=== PATIENT | male | born 1960 | race Caucasian/White ===

== ENCOUNTER 2019-03-16 19:26 | Emergency (ER) | payer BC ==
[~2019-03-16 19:26] MED LIST: Etomidate 2 MG/ML 20 ML SDV IVPUSH ONE; Rocuronium 100 MG/10 ML MDV ONE; Succinylcholine 200 MG/10 ML MDV ONE
--- NOTE | 2019-03-16 19:39 | EDM.PDOC ---
ED HPI GENERAL MEDICAL PROBLEM - General Chief Complaint: Respiratory Problem Stated Complaint: UNKNOWN Time Seen by Provider: 03/16/19 19:29 - History of Present Illness INITIAL COMMENTS - FREE TEXT/NARRATIVE: HISTORY AND PHYSICAL: History of present illness: Patient is a 58-year-old white male who presents severe respiratory distress on arrival is speaking in several word sentences is noted be cyanotic and pale who states he's had a cough and progressive shortness of breath over last several days he denies chest pain nausea vomiting or other concern he is a smoker. Review of systems: As per history of present illness and below otherwise all systems reviewed and negative. Past medical history: As per history of present illness and as reviewed below otherwise noncontributory. Surgical history: As per history of present illness and as reviewed below otherwise noncontributory. Social history: No reported history of drug or alcohol abuse. Family history: As per history of present illness and as reviewed below otherwise noncontributory. Physical exam: HEENT: Atraumatic, normocephalic, pupils reactive, pallor and acrocyanosis noted , mucous membranes moist, throat clear, neck supple, nontender, trachea midline. Lungs: Coarse bilaterally diminished, breath sounds equal bilaterally, chest nontender. Heart: S1S2, regular, negative for clicks, rubs, or JVD. Abdomen: Soft, protuberant nontender. Negative for masses or hepatosplenomegaly. Negative for costovertebral tenderness. Pelvis: Stable nontender. Genitourinary: Deferred. Rectal: Deferred. Extremities: Atraumatic, negative for cords or calf pain. Neurovascular unremarkable. Neuro: Awake, alert, oriented. Follows commands moves all extremities limited but grossly nonfocal exam Diagnostics: CBC CMP troponin PT/INR chest x-ray EKG lactic acid blood culture 2 BNP Therapeutics: Patient was intubated with an 8-0 ET tube via rapid sequence intubation without complication Zosyn 3.375 IV Levaquin 750 IV central line was placed on myself in the right femoral vein with a sepsis this was a 8-5 [place] central line Impression: #1 acute respiratory failure Definitive disposition and diagnosis as appropriate pending reevaluation and review of above. - Related Data Allergies Allergy/AdvReac Type Severity Reaction Status Date / Time No Known Allergies Allergy Verified 03/16/19 19:28 Home Meds: Home Meds . [Unable to Verify Home Med List] 03/16/19 [History] ED ROS GENERAL - Review of Systems Review Of Systems: ROS reveals no pertinent complaints other than HPI. ED EXAM, GENERAL - Physical Exam Exam: See Below (Dictation) Course - Vital Signs Last Recorded V/S: Last Vital Signs Temp 36.1 C 03/16/19 19:30 Pulse 120 H 03/16/19 19:30 Resp 32 H 03/16/19 19:30 BP 151/73 H 03/16/19 19:30 Pulse Ox 49 L 03/16/19 19:30 - Orders/Labs/Meds Orders: Active Orders 24 hr Category Date Time Status Cardiac Monitoring [RC] . DIRECTED Care 03/16/19 19:35 Active Chest 2V [CR] Stat Exams 03/16/19 19:35 Ordered B-TYPE NATRIURETIC PEPTIDE,BNP [CHEM] Stat Lab 03/16/19 19:30 Received BLOOD GAS ARTERIAL [BG] Stat Lab 03/16/19 19:35 Ordered CBC WITH AUTO DIFF [HEME] Stat Lab 03/16/19 19:30 Received COMPREHENSIVE METABOLIC PN,CMP [CHEM] Stat Lab 03/16/19 19:30 Received CULTURE BLOOD [BC] Stat Lab 03/16/19 19:30 Received CULTURE BLOOD [BC] Stat Lab 03/16/19 19:36 Ordered INR,PT,PROTHROMBIN TIME [COAG] Stat Lab 03/16/19 19:30 Received TROPONIN I [CHEM] Stat Lab 03/16/19 19:30 Received UA W/O MICROSCOPIC [URIN] Stat Lab 03/16/19 19:35 Ordered Levofloxacin/Dextrose 5%-Water [Levaquin in D5W 750 MG/ Med 03/16/19 19:44 Ordered 150 ML] 750 mg Premix Bag 1 bag IV ONETIME Piperacillin/Tazobactam [Piperacil-Tazobact] 3.375 gm Med 03/16/19 19:44 Ordered Sodium Chloride 0.9% [Normal Saline] 50 ml IV ONETIME Blood Culture x2 Reflex Set [OM.PC] Stat Oth 03/16/19 19:36 Ordered Meds: Medications Discontinued Medications Generic Name Dose Route Start Last Admin Trade Name Freq PRN Reason Stop Dose Admin Propofol Confirm 03/16/19 19:30 Diprivan 100 Ml Administered 03/16/19 19:31 Dose 100 mls @ as directed .ROUTE .STK-MED ONE Departure - Departure Time of Disposition: 19:46 Disposition: DC/Tfer to Acute Hospital 02 Condition: Critical Clinical Impression: Acute respiratory failure - Discharge Information Forms: ED Department Discharge - My Orders Last 24 Hours: My Active Orders 03/16/19 19:30 B-TYPE NATRIURETIC PEPTIDE,BNP [CHEM] Stat CBC WITH AUTO DIFF [HEME] Stat COMPREHENSIVE METABOLIC PN,CMP [CHEM] Stat CULTURE BLOOD [BC] Stat INR,PT,PROTHROMBIN TIME [COAG] Stat TROPONIN I [CHEM] Stat 03/16/19 19:35 Cardiac Monitoring [RC] . DIRECTED Chest 2V [CR] Stat BLOOD GAS ARTERIAL [BG] Stat UA W/O MICROSCOPIC [URIN] Stat 03/16/19 19:36 CULTURE BLOOD [BC] Stat Blood Culture x2 Reflex Set [OM.PC] Stat 03/16/19 19:44 Levofloxacin/Dextrose 5%-Water [Levaquin in D5W 750 MG/150 ML] 750 mg Premix Bag 1 bag IV ONETIME Piperacillin/Tazobactam [Piperacil-Tazobact] 3.375 gm Sodium Chloride 0.9% [ Normal Saline] 50 ml IV ONETIME - Assessment/Plan Last 24 Hours: My Active Orders 03/16/19 19:30 B-TYPE NATRIURETIC PEPTIDE,BNP [CHEM] Stat CBC WITH AUTO DIFF [HEME] Stat COMPREHENSIVE METABOLIC PN,CMP [CHEM] Stat CULTURE BLOOD [BC] Stat INR,PT,PROTHROMBIN TIME [COAG] Stat TROPONIN I [CHEM] Stat 03/16/19 19:35 Cardiac Monitoring [RC] . DIRECTED Chest 2V [CR] Stat BLOOD GAS ARTERIAL [BG] Stat UA W/O MICROSCOPIC [URIN] Stat 03/16/19 19:36 CULTURE BLOOD [BC] Stat Blood Culture x2 Reflex Set [OM.PC] Stat 03/16/19 19:44 Levofloxacin/Dextrose 5%-Water [Levaquin in D5W 750 MG/150 ML] 750 mg Premix Bag 1 bag IV ONETIME Piperacillin/Tazobactam [Piperacil-Tazobact] 3.375 gm Sodium Chloride 0.9% [ Normal Saline] 50 ml IV ONETIME
[2019-03-16] MEDS ORDERED: Levofloxacin/Dextrose 5%-Water 750 MG in Premix Bag 1 BAG IV ONE (19:44)
[2019-03-16] MEDS ORDERED: Piperacillin/Tazobactam 3.375 GM in Sodium Chloride 0.9% 50 ML IV ONE (19:44)
[2019-03-16 20:09] LABS: CHLORIDE,CL 101 mmol/L (98-107); SODIUM,NA 137 mmol/L (136-148)
--- NOTE | 2019-03-16 20:10 | CR ---
HISTORY: Respiratory distress. Intubation. FINDINGS: Single AP view of the chest is provided. Endotracheal tube is seen in the mid trachea with the tip approximately 4.5 cm above the danielle. Patchy bilateral airspace opacity is noted suggest pneumonia. No findings for pneumothorax. Cardiac silhouette size is within normal limits. Dictated by John Walter MD @ Mar 16 2019 8:09PM Signed by Dr. John Walter @ Mar 16 2019 8:09PM
[2019-03-16] MEDS ORDERED: Etomidate 2 MG/ML 20 ML SDV IVPUSH ONE (20:33)
[2019-03-16] MEDS ORDERED: Rocuronium 50 MG/5 ML Vial IVPUSH ONE (20:33)
[2019-03-16] MEDS ORDERED: Sodium Chloride 0.9% 1,000 ML IV ONE ×4 (20:34→20:35)
== END 2019-03-16 21:18 ==
LOC: MW.ED 19:26
DX: J96.00 Acute respiratory failure, unspecified whether with hypoxia or hypercapnia (principal)
CPT/HCPCS: 31500; 36600; 71045; 80053; 81003; 82803; 83605; 83880; 84484; 85025; 85610; 87040; 93005; 94002; 96360; 96361; 96365; 99291; 99292; A4217; J0330; J1956; J2543; J2704; J3490; J7040; J7050

== ENCOUNTER 2023-03-18 21:13 | Inpatient (IN) | payer MEDICARE, MEDICAID ==
[2023-03-18] MEDS ORDERED: Sodium Chloride 0.9% 10 ML Syringe FLUSH PRN (21:40)
[2023-03-18] MEDS ORDERED: Sodium Chloride 0.9% 2.5 ML Syringe FLUSH PRN (21:40)
[2023-03-18] MEDS ORDERED: Albuterol/Ipratropium 3.0-0.5 MG/3 ML Neb Soln NEB ONE (21:47)
[2023-03-18] MEDS ORDERED: Magnesium Sulfate/Water 2 GM in Premix Bag 1 BAG IV ONE ×2 (21:47→22:00)
[2023-03-18] MEDS ORDERED: methylPREDNISolone Sodium Succinate 125 MG/2 ML SDV IVPUSH ONE (21:49)
[2023-03-18 21:51] LABS: BASE EXCESS VENOUS 6.4 (-2.0-3.0); BICARBONATE,VENOUS 33 mEq/L (23-28); PCO2 VENOUS 52 mmHG (41-51); PH,VENOUS 7.41 (7.31-7.41)
[2023-03-18 21:53] LABS: PO2 VENOUS < 30 mmHG
[2023-03-18 21:55] LABS: BASOPHILS ABSOLUTE AUTO 0.2 K/uL (0.0-0.1); BASOPHILS PERCENT AUTO 0.6 % (0.0-1.5); EOSINOPHILS ABSOLUTE AUTO 0.3 K/uL (0.0-0.7); EOSINOPHILS PERCENT AUTO 1.2 % (0.0-7.0); HEMATOCRIT 61.8 % (38.0-50.0); HEMOGLOBIN 20.1 g/dL (13.0-17.0); LYMPHOCYTES ABSOLUTE AUTO 1.3 K/uL (0.6-2.4); LYMPHOCYTES PERCENT AUTO 5.1 % (16.0-40.0); MEAN CORPUSCULAR HEMOGLOBIN 26.9 pg (27.0-32.0); MEAN CORPUSCULAR HGB CONC 32.5 g/dL (31.0-37.0); MEAN CORPUSCULAR VOLUME 82.7 fL (80.0-98.0); MONOCYTES ABSOLUTE AUTO 1.5 K/uL (0.0-0.8); NEUTROPHILS ABSOLUTE AUTO 21.7 K/uL (1.4-5.7); NEUTROPHILS PERCENT AUTO 87.1 % (48.0-80.0); NRBC ABSOLUTE 0 K/uL; PLATELET COUNT,PLT 550 K/uL (150-400); RED BLOOD CELL COUNT 7.47 M/uL (4.50-5.90); WHITE BLOOD CELL COUNT,WBC 24.97 K/uL (4.0-11.0)
[2023-03-18 22:06] LABS: INR 1.85 (0.86-1.11)
[2023-03-18] MEDS ORDERED: Sodium Chloride 0.9% 1,000 ML IV ONE (22:24)
[2023-03-18 22:28] LABS: A/G RATIO 0.7 (0.9-1.6); ALBUMIN 3.4 g/dL (3.4-5.0); BILIRUBIN TOTAL 1.8 mg/dL (0.2-1.0); CALCIUM 9.2 mg/dL (8.5-10.1); CARBON DIOXIDE,CO2 31.7 mmol/L (21.0-32.0); EST CRCL DRUG DOSING (CG) 74.1 mL/min; POTASSIUM,K 3.9 mmol/L (3.5-5.1); PROTEIN TOTAL,TP 8.4 g/dL (6.4-8.2)
[2023-03-18] MEDS ORDERED: Piperacillin/Tazobactam 4.5 GM in Sodium Chloride 0.9% 100 ML IV ONE (22:32)
[2023-03-18] MEDS ORDERED: VANCOmycin 2 GM/400 ML 400 ML IV ONE (22:45)
[2023-03-19 01:06] LABS: BASE EXCESS VENOUS 2.8 (-2.0-3.0); PH,VENOUS 7.4 (7.31-7.41)
[2023-03-19] MEDS ORDERED: Albuterol 0.083% 2.5 MG/3 ML Neb Soln NEB PRN (02:24)
[2023-03-19] MEDS ORDERED: Azithromycin 500 MG in Sodium Chloride 0.9% 250 ML IV SCH (02:30)
[2023-03-19] MEDS ORDERED: cefTRIAXone 1 GM in Sodium Chloride 0.9% 50 ML IV SCH (02:30)
[2023-03-19] MEDS ORDERED: Sodium Chloride 0.9% 1,000 ML IV SCH (02:30)
[2023-03-19 05:47] LABS: BASOPHILS ABSOLUTE AUTO 0.1 K/uL (0.0-0.1); BASOPHILS PERCENT AUTO 0.5 % (0.0-1.5); HEMATOCRIT 57.1 % (38.0-50.0); HEMOGLOBIN 18.5 g/dL (13.0-17.0); LYMPHOCYTES ABSOLUTE AUTO 0.4 K/uL (0.6-2.4); LYMPHOCYTES PERCENT AUTO 1.7 % (16.0-40.0); MEAN CORPUSCULAR HEMOGLOBIN 26.8 pg (27.0-32.0); MEAN CORPUSCULAR HGB CONC 32.4 g/dL (31.0-37.0); MEAN CORPUSCULAR VOLUME 82.6 fL (80.0-98.0); MONOCYTES ABSOLUTE AUTO 0.3 K/uL (0.0-0.8); MONOCYTES PERCENT AUTO 1.1 % (0.0-15.0); NEUTROPHILS ABSOLUTE AUTO 23.5 K/uL (1.4-5.7); NEUTROPHILS PERCENT AUTO 96.7 % (48.0-80.0); NRBC ABSOLUTE 0 K/uL; NRBC PERCENT 0.1 /100WBC; PLATELET COUNT,PLT 485 K/uL (150-400); RED BLOOD CELL COUNT 6.91 M/uL (4.50-5.90); WHITE BLOOD CELL COUNT,WBC 24.25 K/uL (4.0-11.0)
[2023-03-19 06:05] LABS: CALCIUM 8.7 mg/dL (8.5-10.1); CARBON DIOXIDE,CO2 26.7 mmol/L (21.0-32.0); EST CRCL DRUG DOSING (CG) 74.1 mL/min; POTASSIUM,K 3.6 mmol/L (3.5-5.1)
[2023-03-19] MEDS: Albuterol/Ipratropium 3.0-0.5 MG/3 ML Neb Soln NEB SCH ×5 (06:16→22:09)
[2023-03-19 06:28] LABS: BASE EXCESS ARTERIAL 1.9 (-2.0-3.0); BICARBONATE,ARTERIAL 28 mEq/L (22-26); PCO2 ARTERIAL 47 mmHG (35-45); PO2 ARTERIAL 72 mmHG (80-105)
[2023-03-19] MEDS: predniSONE 20 MG Tab PO SCH (08:05)
[2023-03-19] MEDS ORDERED: Enoxaparin 40 MG/0.4 ML Syringe SUBCUT SCH (09:00)
[2023-03-19] MEDS ORDERED: Furosemide 40 MG/4 ML VIAL IVPUSH ONE (10:01)
[2023-03-19] MEDS ORDERED: Digoxin 125 MCG Tab PO SCH (10:15)
[2023-03-19] MEDS ORDERED: Metoprolol Succinate 50 MG Tab.ER PO SCH (10:15)
[2023-03-19] MEDS ORDERED: Apixaban 5 MG Tab PO SCH (10:15)
[2023-03-19] MEDS ORDERED: Albuterol 8 GM Inhaler INH PRN (10:18)
[2023-03-19] MEDS ORDERED: Diltiazem 120 MG Cap.CD PO SCH (10:30)
[2023-03-19] MEDS ORDERED: Doxycycline 100 MG Cap PO SCH (10:30)
[2023-03-19] MEDS: Doxycycline 100 MG Cap PO SCH ×2 (12:07→20:41)
[2023-03-19] MEDS: Diltiazem 120 MG Cap.CD PO SCH (12:14)
[2023-03-19] MEDS: Apixaban 5 MG Tab PO SCH ×2 (12:14→20:41)
[2023-03-19] MEDS: Digoxin 125 MCG Tab PO SCH (12:15)
[2023-03-19] MEDS: Metoprolol Succinate 50 MG Tab.ER PO SCH (12:15)
[2023-03-19] MEDS: Nicotine 14 MG/24 Hr Patch TRDERM SCH (15:46)
[2023-03-19] MEDS: Potassium Chloride 20 MEQ Tab.ER PO SCH (20:41)
[2023-03-19] MEDS: guaiFENesin 600 MG Tab.ER PO SCH (23:44)
[2023-03-20] MEDS: Albuterol/Ipratropium 3.0-0.5 MG/3 ML Neb Soln NEB SCH ×6 (01:46→21:34)
[2023-03-20] MEDS: Magnesium Oxide 400 MG Tab PO SCH (08:10)
[2023-03-20] MEDS: guaiFENesin 600 MG Tab.ER PO SCH ×2 (08:11→20:41)
[2023-03-20] MEDS: Diltiazem 120 MG Cap.CD PO SCH (08:12)
[2023-03-20] MEDS: Doxycycline 100 MG Cap PO SCH ×2 (08:12→20:41)
[2023-03-20] MEDS: buPROPion 150 MG Tab.ER PO SCH (08:13)
[2023-03-20] MEDS: Potassium Chloride 20 MEQ Tab.ER PO SCH ×2 (08:15→20:41)
[2023-03-20] MEDS: predniSONE 20 MG Tab PO SCH (08:15)
[2023-03-20] MEDS: Apixaban 5 MG Tab PO SCH ×2 (08:16→20:41)
[2023-03-20] MEDS: Furosemide 40 MG Tab PO SCH (08:16)
[2023-03-20] MEDS: Digoxin 125 MCG Tab PO SCH (08:17)
[2023-03-20] MEDS: Nicotine 14 MG/24 Hr Patch TRDERM SCH (08:17)
[2023-03-20] MEDS: Metoprolol Succinate 50 MG Tab.ER PO SCH (09:04)
[2023-03-20 10:43] LABS: BASOPHILS ABSOLUTE AUTO 0.1 K/uL (0.0-0.1); BASOPHILS PERCENT AUTO 0.3 % (0.0-1.5); HEMATOCRIT 58.8 % (38.0-50.0); HEMOGLOBIN 18.7 g/dL (13.0-17.0); LYMPHOCYTES ABSOLUTE AUTO 0.8 K/uL (0.6-2.4); LYMPHOCYTES PERCENT AUTO 3.3 % (16.0-40.0); MEAN CORPUSCULAR HEMOGLOBIN 26.4 pg (27.0-32.0); MEAN CORPUSCULAR HGB CONC 31.8 g/dL (31.0-37.0); MEAN CORPUSCULAR VOLUME 83.2 fL (80.0-98.0); MONOCYTES ABSOLUTE AUTO 0.7 K/uL (0.0-0.8); MONOCYTES PERCENT AUTO 2.7 % (0.0-15.0); NEUTROPHILS ABSOLUTE AUTO 23.3 K/uL (1.4-5.7); NEUTROPHILS PERCENT AUTO 93.7 % (48.0-80.0); NRBC ABSOLUTE 0 K/uL; PLATELET COUNT,PLT 503 K/uL (150-400); RED BLOOD CELL COUNT 7.07 M/uL (4.50-5.90); WHITE BLOOD CELL COUNT,WBC 24.87 K/uL (4.0-11.0)
[2023-03-20 11:21] LABS: CALCIUM 9.1 mg/dL (8.5-10.1); CARBON DIOXIDE,CO2 28.5 mmol/L (21.0-32.0); EST CRCL DRUG DOSING (CG) 74.1 mL/min; POTASSIUM,K 4.4 mmol/L (3.5-5.1)
[2023-03-20] MEDS: Benzonatate 100 MG Cap PO PRN (15:03)
[2023-03-21] MEDS: Albuterol/Ipratropium 3.0-0.5 MG/3 ML Neb Soln NEB SCH ×3 (04:04→10:49)
[2023-03-21] MEDS: Benzonatate 100 MG Cap PO PRN (07:53)
[2023-03-21] MEDS: predniSONE 20 MG Tab PO SCH (07:53)
[2023-03-21] MEDS: Apixaban 5 MG Tab PO SCH (08:03)
[2023-03-21] MEDS: Potassium Chloride 20 MEQ Tab.ER PO SCH (08:03)
[2023-03-21] MEDS: Metoprolol Succinate 50 MG Tab.ER PO SCH (08:04)
[2023-03-21] MEDS: Digoxin 125 MCG Tab PO SCH (08:05)
[2023-03-21] MEDS: guaiFENesin 600 MG Tab.ER PO SCH (08:05)
[2023-03-21] MEDS: Furosemide 40 MG Tab PO SCH (08:06)
[2023-03-21] MEDS: buPROPion 150 MG Tab.ER PO SCH (08:06)
[2023-03-21] MEDS: Doxycycline 100 MG Cap PO SCH (08:06)
[2023-03-21] MEDS: Diltiazem 120 MG Cap.CD PO SCH (08:07)
[2023-03-21] MEDS: Nicotine 14 MG/24 Hr Patch TRDERM SCH (08:07)
[2023-03-21] MEDS: Magnesium Oxide 400 MG Tab PO SCH (08:09)
== END 2023-03-21 13:00 | disposition home or self-care (01) | DRG 189 ==
LOC: MW.ED 21:13 → MW.ICU 03-19 00:45 → MW.MS 03-19 19:08
PROVIDERS: ADMIT Hospitalist; ATTEND Hospitalist
PROC: 5A09357 Assistance with Respiratory Ventilation, Less than 24 Consecutive Hours, Continuous Positive Airway Pressure (ICD-10-PCS; principal; 2023-03-19)
DX: J96.21 Acute and chronic respiratory failure with hypoxia (principal); I48.20 Chronic atrial fibrillation, unspecified; J18.9 Pneumonia, unspecified organism; J44.0 Chronic obstructive pulmonary disease with (acute) lower respiratory infection; I50.22 Chronic systolic (congestive) heart failure; R65.10 Systemic inflammatory response syndrome (SIRS) of non-infectious origin without acute organ dysfunction; A41.9 Sepsis, unspecified organism; J44.1 Chronic obstructive pulmonary disease with (acute) exacerbation; E78.00 Pure hypercholesterolemia, unspecified; M19.90 Unspecified osteoarthritis, unspecified site; D75.1 Secondary polycythemia; E66.9 Obesity, unspecified; G47.33 Obstructive sleep apnea (adult) (pediatric); R09.02 Hypoxemia; Z88.7 Allergy status to serum and vaccine; Z88.8 Allergy status to other drugs, medicaments and biological substances; Z90.49 Acquired absence of other specified parts of digestive tract; F17.210 Nicotine dependence, cigarettes, uncomplicated; Z68.36 Body mass index [BMI] 36.0-36.9, adult; Z91.198 Patient's noncompliance with other medical treatment and regimen for other reason; Z98.890 Other specified postprocedural states; I11.0 Hypertensive heart disease with heart failure; Z91.041 Radiographic dye allergy status; Z91.148 Patient's other noncompliance with medication regimen for other reason; I50.9 Heart failure, unspecified; Z99.81 Dependence on supplemental oxygen; Z79.01 Long term (current) use of anticoagulants; Z79.899 Other long term (current) drug therapy
CPT/HCPCS: 36415; 71045; 80053; 82803; 83605; 85025; 85610; 87040 ×2; 94660; J2543; J2930; J3370; J3475; J3490 ×2; J7030; 36600; 80048; 94640; 99223; 99232; 99239; 99284; A9270-GY; J0456; J0696; J1650; J1940; J7050; J7620-GY

== ENCOUNTER 2023-03-23 17:46 | Observation (INO) | payer MEDICARE, MEDICAID ==
[2023-03-23] MEDS ORDERED: Sodium Chloride 0.9% 10 ML Syringe FLUSH PRN (17:54)
[2023-03-23] MEDS ORDERED: Sodium Chloride 0.9% 2.5 ML Syringe FLUSH PRN (17:54)
[2023-03-23 18:06] LABS: BASE EXCESS VENOUS 10.8 (-2.0-3.0); PH,VENOUS 7.42 (7.31-7.41)
[2023-03-23 18:10] LABS: HEMATOCRIT 63.6 % (38.0-50.0); MEAN CORPUSCULAR HGB CONC 31.4 g/dL (31.0-37.0); MEAN CORPUSCULAR VOLUME 82.7 fL (80.0-98.0); NRBC ABSOLUTE 0 K/uL; PLATELET COUNT,PLT 438 K/uL (150-400); RED BLOOD CELL COUNT 7.69 M/uL (4.50-5.90); WHITE BLOOD CELL COUNT,WBC 18.65 K/uL (4.0-11.0)
[2023-03-23] MEDS ORDERED: Ondansetron 4 MG/2 ML SDV IVPUSH STA (18:35)
[2023-03-23 18:36] LABS: A/G RATIO 0.8 (0.9-1.6); ALBUMIN 3.1 g/dL (3.4-5.0); BILIRUBIN TOTAL 1.1 mg/dL (0.2-1.0); CALCIUM 8.9 mg/dL (8.5-10.1); CARBON DIOXIDE,CO2 35.8 mmol/L (21.0-32.0); CREATININE 0.9 mg/dL (0.8-1.3); EST CRCL DRUG DOSING (CG) 76.8 mL/min; PROTEIN TOTAL,TP 6.8 g/dL (6.4-8.2)
[2023-03-23 18:38] LABS: LIPASE 28 U/L (73-393); MAGNESIUM 2.2 mg/dL (1.8-2.4)
[2023-03-23 19:00] LABS: BAND ABSOLUTE MAN 0.2; BAND PERCENT MAN 1 %; BASOPHILS ABSOLUTE MAN 0.2 (0.0-0.1); BASOPHILS PERCENT MAN 1 % (0.0-1.5); EOSINOPHILS ABSOLUTE MAN 0.6 (0.0-0.7); EOSINOPHILS PERCENT MAN 3 % (0.0-7.0); LYMPHOCYTES % ATYPICAL MANUAL 6; LYMPHOCYTES ABSOLUTE MAN 1.9 (0.6-2.4); LYMPHOCYTES PERCENT MAN 10 % (16.0-40.0); MONOCYTES ABSOLUTE MAN 1.7 (0.0-0.8); MONOCYTES PERCENT MAN 9 % (0.0-15.0); SEG NEUTROPHILS ABSOLUTE MAN 13.1 (1.4-5.7); SEG NEUTROPHILS PERCENT MAN 70 % (48.0-80.0)
[2023-03-23 19:07] LABS: INR 1.26 (0.86-1.11)
[2023-03-23] MEDS ORDERED: Iopamidol 755 MG/ML 500 ML Multipack Bottle IVPUSH STA (19:14)
[2023-03-23 20:27] LABS: APPEARANCE,URINE CLEAR; BILIRUBIN,URINE NEGATIVE (NEGATIVE); COLOR,URINE YELLOW; GLUCOSE,URINE NEGATIVE (NEGATIVE); KETONES,URINE NEGATIVE (NEGATIVE); LEUKOCYTE ESTERASE,URINE NEGATIVE (NEGATIVE); NITRITE,URINE NEGATIVE (NEGATIVE); OCCULT BLOOD,URINE NEGATIVE (NEGATIVE); PH,URINE 5.5 (5.0-8.0); PROTEIN,URINE NEGATIVE (NEGATIVE)
[2023-03-23] MEDS ORDERED: Levofloxacin/Dextrose 5%-Water 750 MG in Premix Bag 1 BAG IV STA (21:14)
[2023-03-24] MEDS ORDERED: Ondansetron 4 MG/2 ML SDV IVPUSH PRN (00:04)
[2023-03-24] MEDS ORDERED: Albuterol 8 GM Inhaler INH PRN (00:15)
[2023-03-24] MEDS: Nicotine 14 MG/24 Hr Patch TRDERM SCH ×2 (00:32→11:53)
[2023-03-24 06:13] LABS: HEMATOCRIT 59.9 % (38.0-50.0); HEMOGLOBIN 18.9 g/dL (13.0-17.0); MEAN CORPUSCULAR HEMOGLOBIN 26.4 pg (27.0-32.0); MEAN CORPUSCULAR HGB CONC 31.6 g/dL (31.0-37.0); MEAN CORPUSCULAR VOLUME 83.5 fL (80.0-98.0); NRBC ABSOLUTE 0 K/uL; PLATELET COUNT,PLT 395 K/uL (150-400); RED BLOOD CELL COUNT 7.17 M/uL (4.50-5.90); WHITE BLOOD CELL COUNT,WBC 17.52 K/uL (4.0-11.0)
[2023-03-24 06:28] LABS: BAND ABSOLUTE MAN 0.7; BAND PERCENT MAN 4 %; EOSINOPHILS ABSOLUTE MAN 0.7 (0.0-0.7); EOSINOPHILS PERCENT MAN 4 % (0.0-7.0); LYMPHOCYTES ABSOLUTE MAN 2.5 (0.6-2.4); LYMPHOCYTES PERCENT MAN 14 % (16.0-40.0); MONOCYTES ABSOLUTE MAN 1.1 (0.0-0.8); MONOCYTES PERCENT MAN 6 % (0.0-15.0); SEG NEUTROPHILS ABSOLUTE MAN 12.6 (1.4-5.7); SEG NEUTROPHILS PERCENT MAN 72 % (48.0-80.0)
[2023-03-24 06:37] LABS: A/G RATIO 0.7 (0.9-1.6); ALBUMIN 2.6 g/dL (3.4-5.0); CALCIUM 8.7 mg/dL (8.5-10.1); CARBON DIOXIDE,CO2 35.9 mmol/L (21.0-32.0); CREATININE 0.8 mg/dL (0.8-1.3); EST CRCL DRUG DOSING (CG) 86.4 mL/min; POTASSIUM,K 3.6 mmol/L (3.5-5.1); PROTEIN TOTAL,TP 6.3 g/dL (6.4-8.2)
[2023-03-24] MEDS: Diltiazem 120 MG Cap.CD PO SCH ×2 (09:09→20:59)
[2023-03-24] MEDS: buPROPion 150 MG Tab.ER PO SCH (09:13)
[2023-03-24] MEDS: Digoxin 125 MCG Tab PO SCH (09:14)
[2023-03-24] MEDS: Apixaban 5 MG Tab PO SCH ×2 (09:14→20:59)
[2023-03-24] MEDS: Metoprolol Succinate 50 MG Tab.ER PO SCH (09:15)
[2023-03-24] MEDS: Levofloxacin/Dextrose 5%-Water 750 MG in Premix Bag 1 BAG IV SCH (21:00)
[2023-03-25 06:27] LABS: HEMATOCRIT 58.5 % (38.0-50.0); HEMOGLOBIN 18.2 g/dL (13.0-17.0); MEAN CORPUSCULAR HEMOGLOBIN 26.1 pg (27.0-32.0); MEAN CORPUSCULAR HGB CONC 31.1 g/dL (31.0-37.0); MEAN CORPUSCULAR VOLUME 83.8 fL (80.0-98.0); NRBC ABSOLUTE 0 K/uL; PLATELET COUNT,PLT 414 K/uL (150-400); RED BLOOD CELL COUNT 6.98 M/uL (4.50-5.90); WHITE BLOOD CELL COUNT,WBC 16.46 K/uL (4.0-11.0)
[2023-03-25 06:59] LABS: CALCIUM 8.8 mg/dL (8.5-10.1); CARBON DIOXIDE,CO2 32.8 mmol/L (21.0-32.0); CREATININE 0.9 mg/dL (0.8-1.3); EST CRCL DRUG DOSING (CG) 76.8 mL/min; POTASSIUM,K 3.7 mmol/L (3.5-5.1)
[2023-03-25 07:03] LABS: BAND ABSOLUTE MAN 0.3; BAND PERCENT MAN 2 %; EOSINOPHILS ABSOLUTE MAN 0.2 (0.0-0.7); EOSINOPHILS PERCENT MAN 1 % (0.0-7.0); LYMPHOCYTES ABSOLUTE MAN 2.6 (0.6-2.4); LYMPHOCYTES PERCENT MAN 16 % (16.0-40.0); MONOCYTES ABSOLUTE MAN 0.2 (0.0-0.8); MONOCYTES PERCENT MAN 1 % (0.0-15.0); SEG NEUTROPHILS ABSOLUTE MAN 13.2 (1.4-5.7); SEG NEUTROPHILS PERCENT MAN 80 % (48.0-80.0)
[2023-03-25] MEDS: Diltiazem 120 MG Cap.CD PO SCH ×2 (08:50→21:37)
[2023-03-25] MEDS: Digoxin 125 MCG Tab PO SCH (08:50)
[2023-03-25] MEDS: Apixaban 5 MG Tab PO SCH ×2 (08:50→21:37)
[2023-03-25] MEDS: buPROPion 150 MG Tab.ER PO SCH (08:50)
[2023-03-25] MEDS: Metoprolol Succinate 50 MG Tab.ER PO SCH (08:51)
[2023-03-25] MEDS: Nicotine 14 MG/24 Hr Patch TRDERM SCH (08:55)
[2023-03-25] MEDS ORDERED: Acetaminophen 325 MG Tab PO PRN (21:22)
[2023-03-25] MEDS ORDERED: Acetaminophen 325 MG Tab ONE (21:35)
[2023-03-25] MEDS: Levofloxacin/Dextrose 5%-Water 750 MG in Premix Bag 1 BAG IV SCH (21:38)
[2023-03-26 07:16] LABS: BASOPHILS ABSOLUTE AUTO 0.2 K/uL (0.0-0.1); BASOPHILS PERCENT AUTO 1.6 % (0.0-1.5); EOSINOPHILS ABSOLUTE AUTO 0.8 K/uL (0.0-0.7); EOSINOPHILS PERCENT AUTO 5.1 % (0.0-7.0); HEMATOCRIT 57.8 % (38.0-50.0); HEMOGLOBIN 18.2 g/dL (13.0-17.0); LYMPHOCYTES ABSOLUTE AUTO 1.8 K/uL (0.6-2.4); LYMPHOCYTES PERCENT AUTO 11.9 % (16.0-40.0); MEAN CORPUSCULAR HEMOGLOBIN 26.4 pg (27.0-32.0); MEAN CORPUSCULAR HGB CONC 31.5 g/dL (31.0-37.0); MEAN CORPUSCULAR VOLUME 83.8 fL (80.0-98.0); MONOCYTES ABSOLUTE AUTO 1.2 K/uL (0.0-0.8); MONOCYTES PERCENT AUTO 7.9 % (0.0-15.0); NEUTROPHILS PERCENT AUTO 73.5 % (48.0-80.0); NRBC ABSOLUTE 0 K/uL; PLATELET COUNT,PLT 370 K/uL (150-400); WHITE BLOOD CELL COUNT,WBC 14.96 K/uL (4.0-11.0)
[2023-03-26 07:42] LABS: CALCIUM 8.6 mg/dL (8.5-10.1); CARBON DIOXIDE,CO2 31.8 mmol/L (21.0-32.0); CREATININE 0.9 mg/dL (0.8-1.3); EST CRCL DRUG DOSING (CG) 76.8 mL/min; POTASSIUM,K 4.2 mmol/L (3.5-5.1)
[2023-03-26] MEDS: Metoprolol Succinate 50 MG Tab.ER PO SCH (09:02)
[2023-03-26] MEDS: Digoxin 125 MCG Tab PO SCH (09:03)
[2023-03-26] MEDS: Apixaban 5 MG Tab PO SCH (09:04)
[2023-03-26] MEDS: buPROPion 150 MG Tab.ER PO SCH (09:04)
[2023-03-26] MEDS: Diltiazem 120 MG Cap.CD PO SCH (09:05)
[2023-03-26] MEDS: Nicotine 14 MG/24 Hr Patch TRDERM SCH (09:05)
== END 2023-03-26 12:20 | disposition home or self-care (01) ==
LOC: MW.ED 17:46 → MW.MS 21:15
PROVIDERS: ADMIT Internal Medicine; ATTEND Internal Medicine
DX: K52.9 Noninfective gastroenteritis and colitis, unspecified (principal); I50.9 Heart failure, unspecified; I48.20 Chronic atrial fibrillation, unspecified; J96.00 Acute respiratory failure, unspecified whether with hypoxia or hypercapnia; J44.1 Chronic obstructive pulmonary disease with (acute) exacerbation; J18.9 Pneumonia, unspecified organism; E78.00 Pure hypercholesterolemia, unspecified; I10 Essential (primary) hypertension; G47.00 Insomnia, unspecified; E66.9 Obesity, unspecified; Z90.49 Acquired absence of other specified parts of digestive tract; F17.210 Nicotine dependence, cigarettes, uncomplicated; Z91.041 Radiographic dye allergy status; Z88.7 Allergy status to serum and vaccine
CPT/HCPCS: 36415; 71260; 74177; 80048; 80053; 80162; 81003; 82803; 83605; 83690; 83735; 83880; 84484; 85025; 85610; 87040; 87899; 93005; 96365; 96375; 99285; A9270; J1956; J2405; J3490; Q9967; U0002; 93010; 96366; 96376; G0378

== ENCOUNTER 2023-04-05 17:40 | Emergency (ER) | payer MEDICARE, MEDICAID ==
[2023-04-05] MEDS ORDERED: Sodium Chloride 0.9% 10 ML Syringe FLUSH PRN (17:58)
[2023-04-05] MEDS ORDERED: Sodium Chloride 0.9% 2.5 ML Syringe FLUSH PRN (17:58)
[2023-04-05 18:22] LABS: BASOPHILS ABSOLUTE AUTO 0.4 K/uL (0.0-0.1); BASOPHILS PERCENT AUTO 2.4 % (0.0-1.5); EOSINOPHILS ABSOLUTE AUTO 0.6 K/uL (0.0-0.7); HEMATOCRIT 59.4 % (38.0-50.0); LYMPHOCYTES ABSOLUTE AUTO 1.9 K/uL (0.6-2.4); LYMPHOCYTES PERCENT AUTO 12.4 % (16.0-40.0); MEAN CORPUSCULAR HEMOGLOBIN 26.6 pg (27.0-32.0); MEAN CORPUSCULAR VOLUME 83.1 fL (80.0-98.0); MONOCYTES PERCENT AUTO 6.3 % (0.0-15.0); NEUTROPHILS ABSOLUTE AUTO 11.7 K/uL (1.4-5.7); NEUTROPHILS PERCENT AUTO 74.9 % (48.0-80.0); NRBC ABSOLUTE 0 K/uL; PLATELET COUNT,PLT 651 K/uL (150-400); RED BLOOD CELL COUNT 7.15 M/uL (4.50-5.90); WHITE BLOOD CELL COUNT,WBC 15.62 K/uL (4.0-11.0)
[2023-04-05 18:42] LABS: A/G RATIO 0.9 (0.9-1.6); CALCIUM 8.3 mg/dL (8.5-10.1); CARBON DIOXIDE,CO2 30.3 mmol/L (21.0-32.0); CREATININE 0.9 mg/dL (0.8-1.3); EST CRCL DRUG DOSING (CG) 76.8 mL/min; POTASSIUM,K 3.9 mmol/L (3.5-5.1); PROTEIN TOTAL,TP 6.4 g/dL (6.4-8.2)
[2023-04-05 18:45] LABS: DIGOXIN 0.3 ng/mL (0.9-2.0)
[2023-04-05] MEDS ORDERED: Meclizine 25 MG Tab PO STA (19:22)
== END 2023-04-05 20:53 | disposition home or self-care (01) ==
LOC: MW.ED 17:40
DX: R42 Dizziness and giddiness (principal); Z51.81 Encounter for therapeutic drug level monitoring; I10 Essential (primary) hypertension; J44.9 Chronic obstructive pulmonary disease, unspecified; E66.9 Obesity, unspecified; Z79.899 Other long term (current) drug therapy; Z20.822 Contact with and (suspected) exposure to COVID-19; Z79.01 Long term (current) use of anticoagulants; Z88.7 Allergy status to serum and vaccine; Z91.041 Radiographic dye allergy status; Z68.41 Body mass index [BMI] 40.0-44.9, adult
CPT/HCPCS: 36415; 80053; 80162; 83690; 83735; 84484; 85025; 93005; 99284; A9270; J3490; U0002; 93010; 99283

== ENCOUNTER 2023-04-30 16:02 | Emergency (ER) | payer MEDICARE, MEDICAID ==
[2023-04-30] MEDS ORDERED: Sodium Chloride 0.9% 1,000 ML IV ONE (16:13)
[2023-04-30] MEDS ORDERED: Meclizine 25 MG Tab PO ONE (16:13)
[2023-04-30 17:05] LABS: HEMATOCRIT 63.3 % (38.0-50.0); HEMOGLOBIN 20.2 g/dL (13.0-17.0); MEAN CORPUSCULAR HEMOGLOBIN 27.6 pg (27.0-32.0); MEAN CORPUSCULAR HGB CONC 31.9 g/dL (31.0-37.0); MEAN CORPUSCULAR VOLUME 86.5 fL (80.0-98.0); NRBC ABSOLUTE 0 K/uL; PLATELET COUNT,PLT 561 K/uL (150-400); RED BLOOD CELL COUNT 7.32 M/uL (4.50-5.90); WHITE BLOOD CELL COUNT,WBC 13.79 K/uL (4.0-11.0)
[2023-04-30 17:27] LABS: A/G RATIO 0.8 (0.9-1.6); ALBUMIN 3.5 g/dL (3.4-5.0); BILIRUBIN TOTAL 1.1 mg/dL (0.2-1.0); CALCIUM 8.6 mg/dL (8.5-10.1); CARBON DIOXIDE,CO2 33.4 mmol/L (21.0-32.0); EST CRCL DRUG DOSING (CG) 69.12 mL/min; POTASSIUM,K 3.6 mmol/L (3.5-5.1); PROTEIN TOTAL,TP 7.7 g/dL (6.4-8.2)
[2023-04-30 17:34] LABS: BAND ABSOLUTE MAN 0.3; BAND PERCENT MAN 2 %; BASOPHILS ABSOLUTE MAN 0.4 (0.0-0.1); BASOPHILS PERCENT MAN 3 % (0.0-1.5); EOSINOPHILS ABSOLUTE MAN 0.1 (0.0-0.7); EOSINOPHILS PERCENT MAN 1 % (0.0-7.0); LYMPHOCYTES ABSOLUTE MAN 2.3 (0.6-2.4); LYMPHOCYTES PERCENT MAN 17 % (16.0-40.0); MONOCYTES ABSOLUTE MAN 0.3 (0.0-0.8); MONOCYTES PERCENT MAN 2 % (0.0-15.0); MYELOCYTE ABSOLUTE MAN 0.1; MYELOCYTE PERCENT MAN 1 %; PLATELET COUNT ESTIMATE INCREASED; SEG NEUTROPHILS ABSOLUTE MAN 10.2 (1.4-5.7); SEG NEUTROPHILS PERCENT MAN 74 % (48.0-80.0)
[2023-04-30 18:29] LABS: APPEARANCE,URINE CLEAR; BILIRUBIN,URINE NEGATIVE (NEGATIVE); COLOR,URINE YELLOW; GLUCOSE,URINE NEGATIVE (NEGATIVE); KETONES,URINE NEGATIVE (NEGATIVE); LEUKOCYTE ESTERASE,URINE NEGATIVE (NEGATIVE); NITRITE,URINE NEGATIVE (NEGATIVE); OCCULT BLOOD,URINE NEGATIVE (NEGATIVE); PROTEIN,URINE NEGATIVE (NEGATIVE)
== END 2023-04-30 19:28 | disposition home or self-care (01) ==
LOC: MW.ED 16:02
DX: R42 Dizziness and giddiness (principal); I10 Essential (primary) hypertension; J44.9 Chronic obstructive pulmonary disease, unspecified; Z87.891 Personal history of nicotine dependence; Z20.822 Contact with and (suspected) exposure to COVID-19; Z79.899 Other long term (current) drug therapy; Z91.041 Radiographic dye allergy status; Z88.7 Allergy status to serum and vaccine
CPT/HCPCS: 36415; 71045; 80053; 81003; 85025; 96360; 99284; A9270; J7030; U0002; 93010; 99283

== ENCOUNTER 2023-08-17 14:29 | Emergency (ER) | payer MEDICAID, MEDICARE ==
[2023-08-17 15:36] LABS: CORONAVIRUS COVID-19 NAA NEGATIVE (NEGATIVE); INFLUENZA A NAA NEGATIVE (NEGATIVE); INFLUENZA B NAA NEGATIVE (NEGATIVE); RESPIRATORY SYNCYTIAL VIR NAA NEGATIVE (NEGATIVE)
== END 2023-08-17 16:13 | disposition home or self-care (01) ==
LOC: MW.ED 14:29
DX: R06.00 Dyspnea, unspecified (principal); I10 Essential (primary) hypertension; J44.9 Chronic obstructive pulmonary disease, unspecified; Z20.822 Contact with and (suspected) exposure to COVID-19; Z79.899 Other long term (current) drug therapy; Z88.8 Allergy status to other drugs, medicaments and biological substances; Z88.7 Allergy status to serum and vaccine
CPT/HCPCS: 0241U; 71046; 99285

== ENCOUNTER 2023-09-01 08:34 | Observation (INO) | payer MEDICARE ==
[2023-09-01] MEDS ORDERED: Sodium Chloride 0.9% 500 ML IV ONE (08:50)
[2023-09-01 09:25] LABS: HEMATOCRIT 64.2 % (42.0-52.0); MEAN CORPUSCULAR HEMOGLOBIN 26.4 pg (28.0-32.0); MEAN CORPUSCULAR HGB CONC 31.2 g/dL (32.0-36.0); MEAN CORPUSCULAR VOLUME 84.6 fL (83.0-99.0); MEAN PLATELET VOLUME 9.4 fL (9.4-12.4); PLATELET COUNT,PLT 482 K/uL (150-400); RED BLOOD CELL COUNT 7.59 M/uL (4.52-5.90); WHITE BLOOD CELL COUNT,WBC 13.51 K/uL (3.9-11.3)
[2023-09-01 09:33] LABS: INR 1.37 (0.86-1.11)
[2023-09-01] MEDS ORDERED: Ondansetron 4 MG/2 ML SDV IVPUSH ONE (10:00)
[2023-09-01 10:10] LABS: CORONAVIRUS COVID-19 NAA NEGATIVE (NEGATIVE); INFLUENZA A NAA NEGATIVE (NEGATIVE); INFLUENZA B NAA NEGATIVE (NEGATIVE); RESPIRATORY SYNCYTIAL VIR NAA NEGATIVE (NEGATIVE)
[2023-09-01 10:19] LABS: A/G RATIO 0.9 (0.9-1.6); ALBUMIN 3.4 g/dL (3.4-5.0); BILIRUBIN TOTAL 1.3 mg/dL (0.2-1.0); CALCIUM 8.9 mg/dL (8.5-10.1); CREATININE 1.1 mg/dL (0.8-1.3); DIGOXIN 1.3 ng/mL (0.9-2.0); EST CRCL DRUG DOSING (CG) 62.83 mL/min; POTASSIUM,K 4.4 mmol/L (3.5-5.1); PROTEIN TOTAL,TP 7.1 g/dL (6.4-8.2)
[2023-09-01 10:21] LABS: BAND ABSOLUTE MAN 0.14; BAND PERCENT MAN 1 %; LYMPHOCYTES ABSOLUTE MAN 2.16 K/uL (1.00-4.80); LYMPHOCYTES PERCENT MAN 16 % (24-44); MONOCYTES ABSOLUTE MAN 0.27 K/uL (0.00-0.80); MONOCYTES PERCENT MAN 2 % (0-8); SEG NEUTROPHILS ABSOLUTE MAN 10.94 K/uL (1.80-7.70); SEG NEUTROPHILS PERCENT MAN 81 % (41-71)
[2023-09-01] MEDS ORDERED: Azithromycin 500 MG in Sodium Chloride 0.9% 250 ML IV ONE (10:53)
[2023-09-01] MEDS: cefTRIAXone 1 GM in Sodium Chloride 0.9% 50 ML IV SCH (12:06)
[2023-09-01] MEDS ORDERED: Albuterol/Ipratropium 3.0-0.5 MG/3 ML Neb Soln NEB PRN (14:23)
[2023-09-01] MEDS ORDERED: Ondansetron 4 MG/2 ML SDV IVPUSH PRN (14:23)
[2023-09-01] MEDS ORDERED: Acetaminophen 325 MG Tab PO PRN (14:23)
[2023-09-01] MEDS ORDERED: Polyethylene Glycol 3350 Powder 17 GM Packet PO PRN (14:23)
[2023-09-01] MEDS: Apixaban 5 MG Tab PO SCH ×2 (14:51→20:44)
[2023-09-01] MEDS: Metoprolol Succinate 50 MG Tab.ER PO SCH (15:11)
[2023-09-01] MEDS ORDERED: Digoxin 250 MCG Tab PO SCH (17:00)
[2023-09-01] MEDS: methylPREDNISolone Sodium Succinate 40 MG/1 ML SDV IVPUSH SCH (18:12)
[2023-09-01 18:37] LABS: APPEARANCE,URINE CLEAR; BILIRUBIN,URINE NEGATIVE (NEGATIVE); COLOR,URINE YELLOW; GLUCOSE,URINE NEGATIVE (NEGATIVE); KETONES,URINE NEGATIVE (NEGATIVE); LEUKOCYTE ESTERASE,URINE NEGATIVE (NEGATIVE); NITRITE,URINE NEGATIVE (NEGATIVE); OCCULT BLOOD,URINE NEGATIVE (NEGATIVE); PROTEIN,URINE NEGATIVE (NEGATIVE)
[2023-09-01 18:46] LABS: BACTERIA,URINE FEW (NEGATIVE); EPITHELIAL CELLS,URINE NOT SEEN (NONE-FEW); MUCUS,URINE LIGHT (NONE-MOD); RBC,URINE 0-2 (0-2/HPF); WBC,URINE 0-2 (0-5/HPF)
[2023-09-01] MEDS: Diltiazem 120 MG Cap.CD PO SCH (20:44)
[2023-09-02] MEDS: methylPREDNISolone Sodium Succinate 40 MG/1 ML SDV IVPUSH SCH ×2 (04:31→16:15)
[2023-09-02 06:31] LABS: BASOPHILS ABSOLUTE AUTO 0.32 K/uL (0.00-0.20); BASOPHILS PERCENT AUTO 1.9 % (0.0-1.0); EOSINOPHILS ABSOLUTE AUTO 0.01 K/uL (0.00-0.45); EOSINOPHILS PERCENT AUTO 0.1 % (0.0-6.0); HEMATOCRIT 63.5 % (42.0-52.0); HEMOGLOBIN 20.1 g/dL (14.0-18.0); IMMATURE GRAN ABSOLUTE AUTO 0.12 K/uL (0.00-0.05); IMMATURE GRAN PERCENT AUTO 0.7 % (0.0-0.4); LYMPHOCYTES ABSOLUTE AUTO 0.69 K/uL (1.00-4.80); MEAN CORPUSCULAR HEMOGLOBIN 26.6 pg (28.0-32.0); MEAN CORPUSCULAR HGB CONC 31.7 g/dL (32.0-36.0); MEAN PLATELET VOLUME 9.4 fL (9.4-12.4); MONOCYTES ABSOLUTE AUTO 0.13 K/uL (0.00-0.80); MONOCYTES PERCENT AUTO 0.8 % (0.0-8.0); NEUTROPHILS ABSOLUTE AUTO 15.91 K/uL (1.80-7.70); NEUTROPHILS PERCENT AUTO 92.5 % (41.0-71.0); PLATELET COUNT,PLT 518 K/uL (150-400); RED BLOOD CELL COUNT 7.56 M/uL (4.52-5.90); WHITE BLOOD CELL COUNT,WBC 17.18 K/uL (3.9-11.3)
[2023-09-02 06:38] LABS: A/G RATIO 0.9 (0.9-1.6); ALBUMIN 3.3 g/dL (3.4-5.0); CALCIUM 9.2 mg/dL (8.5-10.1); CARBON DIOXIDE,CO2 32.1 mmol/L (21.0-32.0); CREATININE 1.2 mg/dL (0.8-1.3); EST CRCL DRUG DOSING (CG) 57.6 mL/min; POTASSIUM,K 4.5 mmol/L (3.5-5.1); PROTEIN TOTAL,TP 6.9 g/dL (6.4-8.2)
[2023-09-02] MEDS: Diltiazem 120 MG Cap.CD PO SCH (08:57)
[2023-09-02] MEDS: Apixaban 5 MG Tab PO SCH (08:57)
[2023-09-02] MEDS ORDERED: Azithromycin 500 MG in Sodium Chloride 0.9% 250 ML IV SCH (09:00)
[2023-09-02] MEDS ORDERED: Digoxin 250 MCG Tab PO SCH (09:00)
[2023-09-02] MEDS ORDERED: cefTRIAXone 1 GM in Sodium Chloride 0.9% 50 ML IV SCH (09:00)
[2023-09-02] MEDS: Metoprolol Succinate 50 MG Tab.ER PO SCH (09:05)
[2023-09-02] MEDS: cefTRIAXone 1 GM in Sodium Chloride 0.9% 50 ML IV SCH (10:33)
[2023-09-02] MEDS ORDERED: buPROPion 150 MG Tab.ER PO SCH (11:15)
[2023-09-02] MEDS ORDERED: Furosemide 40 MG Tab PO SCH (11:15)
== END 2023-09-02 17:44 | disposition home health service (06) ==
LOC: MW.ED 08:34 → MW.MS 14:03
PROVIDERS: ADMIT Family Medicine; ATTEND Family Medicine
DX: J18.9 Pneumonia, unspecified organism (principal); J96.21 Acute and chronic respiratory failure with hypoxia; J44.1 Chronic obstructive pulmonary disease with (acute) exacerbation; R00.1 Bradycardia, unspecified; E78.00 Pure hypercholesterolemia, unspecified; I10 Essential (primary) hypertension; I48.91 Unspecified atrial fibrillation; G47.30 Sleep apnea, unspecified; F32.A Depression, unspecified; Z79.01 Long term (current) use of anticoagulants; Z20.822 Contact with and (suspected) exposure to COVID-19; Z79.899 Other long term (current) drug therapy; Z98.890 Other specified postprocedural states; Z91.041 Radiographic dye allergy status; Z88.8 Allergy status to other drugs, medicaments and biological substances
CPT/HCPCS: 0241U; 36415; 70450; 71045; 72125; 80053; 80162; 81001; 83605; 83690; 83880; 84484; 85025; 85610; 87040; 87086; 93005; 93306; 96361; 96365; 96366; 96367; 96375; 96376; 97162; 99285; A9270; G0378; J0456; J0696; J2405; J2920; J3490; J7040; J7050

== ENCOUNTER 2023-09-12 14:48 | Emergency (ER) | payer MEDICARE ==
[2023-09-12] MEDS ORDERED: Meclizine 25 MG Tab PO ONE (14:54)
[2023-09-12] MEDS: Ondansetron 4 MG/2 ML SDV IVPUSH ONE ×2 (15:33→16:26)
[2023-09-12] MEDS: Sodium Chloride 0.9% 1,000 ML IV ONE ×2 (15:34→16:26)
[2023-09-12] MEDS ORDERED: Diazepam 5 MG Tab PO ONE (16:22)
[2023-09-12] MEDS ORDERED: Ondansetron 4 MG Tab.DIS PO ONE (16:22)
[2023-09-12 16:29] LABS: BASOPHILS ABSOLUTE AUTO 0.46 K/uL (0.00-0.20); BASOPHILS PERCENT AUTO 2.3 % (0.0-1.0); EOSINOPHILS ABSOLUTE AUTO 0.48 K/uL (0.00-0.45); EOSINOPHILS PERCENT AUTO 2.4 % (0.0-6.0); HEMATOCRIT 61.3 % (42.0-52.0); HEMOGLOBIN 19.6 g/dL (14.0-18.0); IMMATURE GRAN ABSOLUTE AUTO 0.22 K/uL (0.00-0.05); IMMATURE GRAN PERCENT AUTO 1.1 % (0.0-0.4); LYMPHOCYTES ABSOLUTE AUTO 2.33 K/uL (1.00-4.80); LYMPHOCYTES PERCENT AUTO 11.6 % (24.0-44.0); MEAN CORPUSCULAR HEMOGLOBIN 26.7 pg (28.0-32.0); MEAN CORPUSCULAR VOLUME 83.5 fL (83.0-99.0); MEAN PLATELET VOLUME 9.6 fL (9.4-12.4); MONOCYTES ABSOLUTE AUTO 1.09 K/uL (0.00-0.80); MONOCYTES PERCENT AUTO 5.4 % (0.0-8.0); NEUTROPHILS ABSOLUTE AUTO 15.59 K/uL (1.80-7.70); NEUTROPHILS PERCENT AUTO 77.2 % (41.0-71.0); PLATELET COUNT,PLT 750 K/uL (150-400); RED BLOOD CELL COUNT 7.34 M/uL (4.52-5.90); WHITE BLOOD CELL COUNT,WBC 20.17 K/uL (3.9-11.3)
[2023-09-12 16:30] LABS: CORONAVIRUS COVID-19 NAA NEGATIVE (NEGATIVE); INFLUENZA A NAA NEGATIVE (NEGATIVE); INFLUENZA B NAA NEGATIVE (NEGATIVE)
[2023-09-12 16:54] LABS: A/G RATIO 1.2 (0.9-1.6); ALBUMIN 3.8 g/dL (3.4-5.0); BILIRUBIN TOTAL 1.4 mg/dL (0.2-1.0); CALCIUM 9.7 mg/dL (8.5-10.1); CARBON DIOXIDE,CO2 28.7 mmol/L (21.0-32.0); CREATININE 0.9 mg/dL (0.8-1.3); EST CRCL DRUG DOSING (CG) 76.8 mL/min; POTASSIUM,K 4.7 mmol/L (3.5-5.1)
== END 2023-09-12 17:40 | disposition home or self-care (01) ==
LOC: MW.ED 14:48
DX: R42 Dizziness and giddiness (principal); J44.9 Chronic obstructive pulmonary disease, unspecified; I48.91 Unspecified atrial fibrillation; Z79.01 Long term (current) use of anticoagulants; Z79.899 Other long term (current) drug therapy; Z88.7 Allergy status to serum and vaccine; Z91.041 Radiographic dye allergy status
CPT/HCPCS: 0240U; 36415; 70450; 80053; 80162; 83690; 83735; 85025; 93005; 99285; A9270; 93010; J2405; J3360; J7030

== ENCOUNTER 2023-09-30 19:43 | Emergency (ER) | payer MEDICARE ==
[2023-09-30] MEDS ORDERED: Sodium Chloride 0.9% 2.5 ML Syringe FLUSH PRN ×2 (19:51→19:52)
[2023-09-30] MEDS ORDERED: Sodium Chloride 0.9% 10 ML Syringe FLUSH PRN ×2 (19:51→19:52)
== END 2023-10-01 01:45 | disposition left against medical advice (07) ==
LOC: MW.ED 19:43
DX: Z53.21 Procedure and treatment not carried out due to patient leaving prior to being seen by health care provider (principal)

== ENCOUNTER 2023-10-18 20:20 | Emergency (ER) | payer MEDICARE ==
[2023-10-18 20:49] LABS: HEMATOCRIT 62.7 % (42.0-52.0); HEMOGLOBIN 19.9 g/dL (14.0-18.0); MEAN CORPUSCULAR HEMOGLOBIN 27.4 pg (28.0-32.0); MEAN CORPUSCULAR HGB CONC 31.7 g/dL (32.0-36.0); MEAN CORPUSCULAR VOLUME 86.2 fL (83.0-99.0); MEAN PLATELET VOLUME 9.7 fL (9.4-12.4); NRBC ABSOLUTE 0.03 K/uL (0.00-0.02); NRBC PERCENT 0.2 /100WBC (0.0-0.2); PLATELET COUNT,PLT 630 K/uL (150-400); RED BLOOD CELL COUNT 7.27 M/uL (4.52-5.90); WHITE BLOOD CELL COUNT,WBC 18.72 K/uL (3.9-11.3)
[2023-10-18] MEDS: Sodium Chloride 0.9% 2.5 ML Syringe FLUSH PRN (21:07)
[2023-10-18] MEDS: Sodium Chloride 0.9% 10 ML Syringe FLUSH PRN (21:07)
[2023-10-18] MEDS: Meclizine 25 MG Tab PO STA (21:07)
[2023-10-18 21:32] LABS: BAND ABSOLUTE MAN 0.56; BAND PERCENT MAN 3 %; BASOPHILS ABSOLUTE MAN 0.37 K/uL (0.00-0.20); BASOPHILS PERCENT MAN 2 % (0-1); EOSINOPHILS ABSOLUTE MAN 0.75 K/uL (0.00-0.45); EOSINOPHILS PERCENT MAN 4 % (0-6); LYMPHOCYTES ABSOLUTE MAN 2.81 K/uL (1.00-4.80); LYMPHOCYTES PERCENT MAN 15 % (24-44); MONOCYTES ABSOLUTE MAN 0.75 K/uL (0.00-0.80); MONOCYTES PERCENT MAN 4 % (0-8); SEG NEUTROPHILS ABSOLUTE MAN 13.48 K/uL (1.80-7.70); SEG NEUTROPHILS PERCENT MAN 72 % (41-71)
[2023-10-18 21:57] LABS: CORONAVIRUS COVID-19 NAA NEGATIVE (NEGATIVE); INFLUENZA A NAA NEGATIVE (NEGATIVE); INFLUENZA B NAA NEGATIVE (NEGATIVE); RESPIRATORY SYNCYTIAL VIR NAA NEGATIVE (NEGATIVE)
[2023-10-18 22:12] LABS: MAGNESIUM 1.9 mg/dL (1.8-2.4)
[2023-10-18 22:34] LABS: A/G RATIO 1.1 (0.9-1.6); ALBUMIN 3.3 g/dL (3.4-5.0); CALCIUM 8.6 mg/dL (8.5-10.1); CARBON DIOXIDE,CO2 29.6 mmol/L (21.0-32.0); CREATININE 0.9 mg/dL (0.8-1.3); EST CRCL DRUG DOSING (CG) 98.94 mL/min; POTASSIUM,K 4.7 mmol/L (3.5-5.1); PROTEIN TOTAL,TP 6.2 g/dL (6.4-8.2)
== END 2023-10-18 22:53 | disposition home or self-care (01) ==
LOC: MW.ED 20:20
DX: R42 Dizziness and giddiness (principal); Z88.7 Allergy status to serum and vaccine; Z88.8 Allergy status to other drugs, medicaments and biological substances; Z79.899 Other long term (current) drug therapy; Z79.2 Long term (current) use of antibiotics
CPT/HCPCS: 0241U; 36415; 71046; 80053; 80162; 83690; 83735; 84484; 85025; 99285; A9270; J3490; 93010; 99283

== ENCOUNTER 2024-05-18 15:36 | Emergency (ER) | payer MEDICAID, MEDICARE ==
[2024-05-18] MEDS: Morphine 4 MG/ML Syringe IVPUSH ONE (16:59)
[2024-05-18] MEDS: Sodium Chloride 0.9% 2.5 ML Syringe FLUSH PRN (16:59)
[2024-05-18] MEDS: Sodium Chloride 0.9% 10 ML Syringe FLUSH PRN (17:00)
[2024-05-18 17:15] LABS: BASOPHILS ABSOLUTE AUTO 0.44 K/uL (0.00-0.20); BASOPHILS PERCENT AUTO 2.4 % (0.0-1.0); EOSINOPHILS ABSOLUTE AUTO 0.65 K/uL (0.00-0.45); EOSINOPHILS PERCENT AUTO 3.6 % (0.0-6.0); HEMATOCRIT 58.9 % (42.0-52.0); HEMOGLOBIN 18.5 g/dL (14.0-18.0); IMMATURE GRAN ABSOLUTE AUTO 0.15 K/uL (0.00-0.05); IMMATURE GRAN PERCENT AUTO 0.8 % (0.0-0.4); LYMPHOCYTES ABSOLUTE AUTO 1.91 K/uL (1.00-4.80); LYMPHOCYTES PERCENT AUTO 10.6 % (24.0-44.0); MEAN CORPUSCULAR HEMOGLOBIN 26.4 pg (28.0-32.0); MEAN CORPUSCULAR HGB CONC 31.4 g/dL (32.0-36.0); MEAN CORPUSCULAR VOLUME 84.1 fL (83.0-99.0); MEAN PLATELET VOLUME 9.4 fL (9.4-12.4); MONOCYTES ABSOLUTE AUTO 0.74 K/uL (0.00-0.80); MONOCYTES PERCENT AUTO 4.1 % (0.0-8.0); NEUTROPHILS PERCENT AUTO 78.5 % (41.0-71.0); WHITE BLOOD CELL COUNT,WBC 18.09 K/uL (3.9-11.3)
[2024-05-18 17:25] LABS: INR 1.21 (0.86-1.11)
[2024-05-18 17:41] LABS: PLATELET COUNT,PLT 719 K/uL (150-400)
[2024-05-18 17:43] LABS: CALCIUM 9.1 mg/dL (8.5-10.1); CARBON DIOXIDE,CO2 30.5 mmol/L (21.0-32.0); CREATININE 1.2 mg/dL (0.8-1.3); EST CRCL DRUG DOSING (CG) 60.96 mL/min
== END 2024-05-18 20:24 ==
LOC: MW.ED 15:36
DX: R20.2 Paresthesia of skin (principal); M54.50 Low back pain, unspecified; I10 Essential (primary) hypertension; J44.9 Chronic obstructive pulmonary disease, unspecified; I48.91 Unspecified atrial fibrillation; F17.210 Nicotine dependence, cigarettes, uncomplicated; Z79.899 Other long term (current) drug therapy; Z79.01 Long term (current) use of anticoagulants; Z91.041 Radiographic dye allergy status; Z88.7 Allergy status to serum and vaccine; W19.XXXA Unspecified fall, initial encounter
CPT/HCPCS: 36415; 72128; 72131; 80048; 85025; 85610; 86900; 86901; 96374; 99285; J2270; J3490

== ENCOUNTER 2024-05-21 02:45 | Emergency (ER) | payer MEDICARE ==
[2024-05-21] MEDS ORDERED: Sodium Chloride 0.9% 2.5 ML Syringe FLUSH PRN (02:49)
[2024-05-21] MEDS ORDERED: Sodium Chloride 0.9% 10 ML Syringe FLUSH PRN (02:49)
[2024-05-21 02:54] LABS: BASOPHILS ABSOLUTE AUTO 0.47 K/uL (0.00-0.20); BASOPHILS PERCENT AUTO 2.3 % (0.0-1.0); EOSINOPHILS ABSOLUTE AUTO 0.77 K/uL (0.00-0.45); EOSINOPHILS PERCENT AUTO 3.7 % (0.0-6.0); IMMATURE GRAN ABSOLUTE AUTO 0.28 K/uL (0.00-0.05); IMMATURE GRAN PERCENT AUTO 1.4 % (0.0-0.4); LYMPHOCYTES ABSOLUTE AUTO 2.18 K/uL (1.00-4.80); LYMPHOCYTES PERCENT AUTO 10.6 % (24.0-44.0); MEAN CORPUSCULAR HEMOGLOBIN 26.2 pg (28.0-32.0); MEAN CORPUSCULAR HGB CONC 30.9 g/dL (32.0-36.0); MEAN CORPUSCULAR VOLUME 84.7 fL (83.0-99.0); MEAN PLATELET VOLUME 9.6 fL (9.4-12.4); MONOCYTES ABSOLUTE AUTO 1.13 K/uL (0.00-0.80); MONOCYTES PERCENT AUTO 5.5 % (0.0-8.0); NEUTROPHILS ABSOLUTE AUTO 15.83 K/uL (1.80-7.70); NEUTROPHILS PERCENT AUTO 76.5 % (41.0-71.0); PLATELET COUNT,PLT 564 K/uL (150-400); RED BLOOD CELL COUNT 6.49 M/uL (4.52-5.90); WHITE BLOOD CELL COUNT,WBC 20.66 K/uL (3.9-11.3)
[2024-05-21 03:16] LABS: ALANINE AMINOTRANSFERASE,ALT 8 IU/L (14-63); ALBUMIN 3.3 g/dL (3.4-5.0); ALKALINE PHOSPHATASE 142 U/L (46-116); ASPARTATE AMNIOTRANSFERASE,AST 20 IU/L (15-37); BILIRUBIN TOTAL 0.9 mg/dL (0.2-1.0); BLOOD UREA NITROGEN,BUN 16 mg/dL (7.0-18.0); CALCIUM 8.7 mg/dL (8.5-10.1); CARBON DIOXIDE,CO2 28.7 mmol/L (21.0-32.0); CHLORIDE,CL 102 mmol/L (98-107); CREATININE 1.2 mg/dL (0.8-1.3); ETHANOL BLOOD MEDICAL <3 mg/dL; GLUCOSE RANDOM 105 mg/dL (74-106); POTASSIUM,K 4.6 mmol/L (3.5-5.1); PROTEIN TOTAL,TP 6.7 g/dL (6.4-8.2); SODIUM,NA 139 mmol/L (136-148)
[2024-05-21 03:17] LABS: ESTIMATED GFR 68 mL/min (>60)
[2024-05-21 03:51] LABS: INR 1.19 (0.86-1.11)
[2024-05-21] MEDS: Ibuprofen 600 MG Tab PO ONE (04:40)
[2024-05-21] MEDS: Acetaminophen 325 MG Tab PO ONE (04:40)
== END 2024-05-21 05:00 | disposition home or self-care (01) ==
LOC: MW.ED 02:45
DX: M54.2 Cervicalgia (principal); M54.9 Dorsalgia, unspecified; I10 Essential (primary) hypertension; Z91.041 Radiographic dye allergy status; Z88.7 Allergy status to serum and vaccine; Z79.899 Other long term (current) drug therapy; Z90.49 Acquired absence of other specified parts of digestive tract; Z75.8 Other problems related to medical facilities and other health care
CPT/HCPCS: 36415; 70450; 71045; 71250; 72125; 72128; 72131; 72170; 74176; 80053; 80307; 85025; 85610; 99284; A9270

== ENCOUNTER 2024-07-20 09:56 | Emergency (ER) | payer MEDICARE ==
[2024-07-20] MEDS: Ondansetron 4 MG/2 ML SDV IVPUSH ONE (10:58)
[2024-07-20] MEDS: methylPREDNISolone Sodium Succinate 125 MG/2 ML SDV IVPUSH ONE (10:58)
[2024-07-20 11:11] LABS: HEMATOCRIT 64.9 % (42.0-52.0); HEMOGLOBIN 20.3 g/dL (14.0-18.0); MEAN CORPUSCULAR HEMOGLOBIN 26.6 pg (28.0-32.0); MEAN CORPUSCULAR HGB CONC 31.3 g/dL (32.0-36.0); MEAN CORPUSCULAR VOLUME 85.1 fL (83.0-99.0); MEAN PLATELET VOLUME 9.7 fL (9.4-12.4); PLATELET COUNT,PLT 298 K/uL (150-400); RED BLOOD CELL COUNT 7.63 M/uL (4.52-5.90); WHITE BLOOD CELL COUNT,WBC 14.25 K/uL (3.9-11.3)
[2024-07-20 11:35] LABS: A/G RATIO 0.9 (0.9-1.6); ALBUMIN 3.8 g/dL (3.4-5.0); BILIRUBIN TOTAL 1.7 mg/dL (0.2-1.0); CALCIUM 9.3 mg/dL (8.5-10.1); CARBON DIOXIDE,CO2 34.7 mmol/L (21.0-32.0); EST CRCL DRUG DOSING (CG) 68.23 mL/min; POTASSIUM,K 3.8 mmol/L (3.5-5.1); PROTEIN TOTAL,TP 7.9 g/dL (6.4-8.2)
[2024-07-20 11:44] LABS: APPEARANCE,URINE CLEAR; COLOR,URINE YELLOW; GLUCOSE,URINE 500 mg/dL (NEGATIVE); KETONES,URINE NEGATIVE (NEGATIVE); LEUKOCYTE ESTERASE,URINE NEGATIVE (NEGATIVE); NITRITE,URINE NEGATIVE (NEGATIVE); OCCULT BLOOD,URINE NEGATIVE (NEGATIVE); PROTEIN,URINE NEGATIVE (NEGATIVE)
[2024-07-20 11:58] LABS: BILIRUBIN,URINE SMALL (NEGATIVE)
[2024-07-20 12:17] LABS: HEMOGLOBIN A1C 5.3 %
[2024-07-20 13:08] LABS: BASOPHILS ABSOLUTE MAN 0.29 K/uL (0.00-0.20); BASOPHILS PERCENT MAN 2 % (0-1); EOSINOPHILS ABSOLUTE MAN 0.14 K/uL (0.00-0.45); EOSINOPHILS PERCENT MAN 1 % (0-6); LYMPHOCYTES ABSOLUTE MAN 0.86 K/uL (1.00-4.80); LYMPHOCYTES PERCENT MAN 6 % (24-44); MONOCYTES ABSOLUTE MAN 0.57 K/uL (0.00-0.80); MONOCYTES PERCENT MAN 4 % (0-8); SEG NEUTROPHILS PERCENT MAN 87 % (41-71)
== END 2024-07-20 12:22 | disposition home or self-care (01) ==
LOC: MW.ED 09:56
DX: R06.02 Shortness of breath (principal); I48.91 Unspecified atrial fibrillation; I10 Essential (primary) hypertension; J44.9 Chronic obstructive pulmonary disease, unspecified; Z90.49 Acquired absence of other specified parts of digestive tract; Z88.7 Allergy status to serum and vaccine; Z91.041 Radiographic dye allergy status; Z79.01 Long term (current) use of anticoagulants; Z79.899 Other long term (current) drug therapy; Z75.8 Other problems related to medical facilities and other health care
CPT/HCPCS: 36415; 71045; 80053; 81003; 83036; 83690; 83880; 84484; 85025; 93005; 96374; 96375; 99285; J2405; J2919; 93010; 99284

== ENCOUNTER 2024-08-01 12:47 | Emergency (ER) | payer MEDICARE ==
[2024-08-01 13:59] LABS: HEMATOCRIT 62.7 % (42.0-52.0); HEMOGLOBIN 19.6 g/dL (14.0-18.0); MEAN CORPUSCULAR HGB CONC 31.3 g/dL (32.0-36.0); MEAN CORPUSCULAR VOLUME 86.5 fL (83.0-99.0); MEAN PLATELET VOLUME 9.4 fL (9.4-12.4); PLATELET COUNT,PLT 350 K/uL (150-400); RED BLOOD CELL COUNT 7.25 M/uL (4.52-5.90); WHITE BLOOD CELL COUNT,WBC 13.17 K/uL (3.9-11.3)
[2024-08-01 14:21] LABS: A/G RATIO 1.1 (0.9-1.6); ALBUMIN 3.8 g/dL (3.4-5.0); BILIRUBIN TOTAL 1.4 mg/dL (0.2-1.0); CALCIUM 9.1 mg/dL (8.5-10.1); CARBON DIOXIDE,CO2 32.6 mmol/L (21.0-32.0); CREATININE 1.1 mg/dL (0.8-1.3); EST CRCL DRUG DOSING (CG) 62.03 mL/min; POTASSIUM,K 4.4 mmol/L (3.5-5.1); PROTEIN TOTAL,TP 7.4 g/dL (6.4-8.2)
[2024-08-01 14:37] LABS: EOSINOPHILS PERCENT MAN 3 % (0-6); LYMPHOCYTES ABSOLUTE MAN 1.45 K/uL (1.00-4.80); LYMPHOCYTES PERCENT MAN 11 % (24-44); MONOCYTES ABSOLUTE MAN 0.66 K/uL (0.00-0.80); MONOCYTES PERCENT MAN 5 % (0-8)
[2024-08-01 14:38] LABS: BASOPHILS ABSOLUTE MAN 0.26 K/uL (0.00-0.20); BASOPHILS PERCENT MAN 2 % (0-1); SEG NEUTROPHILS PERCENT MAN 79 % (41-71)
[2024-08-01 15:58] LABS: APPEARANCE,URINE CLEAR; BILIRUBIN,URINE NEGATIVE (NEGATIVE); COLOR,URINE YELLOW; GLUCOSE,URINE 500 mg/dL (NEGATIVE); KETONES,URINE NEGATIVE (NEGATIVE); LEUKOCYTE ESTERASE,URINE NEGATIVE (NEGATIVE); NITRITE,URINE NEGATIVE (NEGATIVE); OCCULT BLOOD,URINE NEGATIVE (NEGATIVE); PROTEIN,URINE NEGATIVE (NEGATIVE)
== END 2024-08-01 16:51 | disposition home or self-care (01) ==
LOC: MW.ED 12:47
DX: R39.198 Other difficulties with micturition (principal); I48.91 Unspecified atrial fibrillation; I10 Essential (primary) hypertension; J44.9 Chronic obstructive pulmonary disease, unspecified; F17.210 Nicotine dependence, cigarettes, uncomplicated; Z90.49 Acquired absence of other specified parts of digestive tract; Z88.7 Allergy status to serum and vaccine; Z91.041 Radiographic dye allergy status; Z79.01 Long term (current) use of anticoagulants; Z79.899 Other long term (current) drug therapy; Z75.8 Other problems related to medical facilities and other health care
CPT/HCPCS: 36415; 80053; 81003; 85025; 99283

== ENCOUNTER 2024-09-10 09:48 | Emergency (ER) | payer SELFPAY ==
[2024-09-10] MEDS ORDERED: Sodium Chloride 0.9% 10 ML Syringe FLUSH PRN (09:57)
[2024-09-10] MEDS ORDERED: Sodium Chloride 0.9% 2.5 ML Syringe FLUSH PRN (09:57)
[2024-09-10 10:39] LABS: BASOPHILS ABSOLUTE AUTO 0.26 K/uL (0.00-0.20); BASOPHILS PERCENT AUTO 2.8 % (0.0-1.0); EOSINOPHILS ABSOLUTE AUTO 0.25 K/uL (0.00-0.45); EOSINOPHILS PERCENT AUTO 2.7 % (0.0-6.0); HEMATOCRIT 57.6 % (42.0-52.0); HEMOGLOBIN 18.5 g/dL (14.0-18.0); IMMATURE GRAN ABSOLUTE AUTO 0.07 K/uL (0.00-0.05); IMMATURE GRAN PERCENT AUTO 0.8 % (0.0-0.4); LYMPHOCYTES ABSOLUTE AUTO 1.11 K/uL (1.00-4.80); LYMPHOCYTES PERCENT AUTO 11.9 % (24.0-44.0); MEAN CORPUSCULAR HEMOGLOBIN 29.3 pg (28.0-32.0); MEAN CORPUSCULAR HGB CONC 32.1 g/dL (32.0-36.0); MEAN CORPUSCULAR VOLUME 91.3 fL (83.0-99.0); MEAN PLATELET VOLUME 10.3 fL (9.4-12.4); MONOCYTES ABSOLUTE AUTO 0.41 K/uL (0.00-0.80); MONOCYTES PERCENT AUTO 4.4 % (0.0-8.0); NEUTROPHILS ABSOLUTE AUTO 7.19 K/uL (1.80-7.70); NEUTROPHILS PERCENT AUTO 77.4 % (41.0-71.0); PLATELET COUNT,PLT 296 K/uL (150-400); RED BLOOD CELL COUNT 6.31 M/uL (4.52-5.90); WHITE BLOOD CELL COUNT,WBC 9.29 K/uL (3.9-11.3)
[2024-09-10] MEDS: LORazepam 2 MG/ML SDV IVPUSH ONE (10:40)
[2024-09-10 11:10] LABS: APPEARANCE,URINE CLEAR; BILIRUBIN,URINE NEGATIVE (NEGATIVE); COLOR,URINE YELLOW; GLUCOSE,URINE >=1000 mg/dL (NEGATIVE); KETONES,URINE NEGATIVE (NEGATIVE); LEUKOCYTE ESTERASE,URINE NEGATIVE (NEGATIVE); NITRITE,URINE NEGATIVE (NEGATIVE); OCCULT BLOOD,URINE NEGATIVE (NEGATIVE); PROTEIN,URINE NEGATIVE (NEGATIVE); UROBILINOGEN,URINE 0.2 EU/dL (<2.0)
[2024-09-10 12:11] LABS: A/G RATIO 0.9 (0.9-1.6); ALANINE AMINOTRANSFERASE,ALT 7 IU/L (14-63); ALBUMIN 3.5 g/dL (3.4-5.0); ALKALINE PHOSPHATASE 122 U/L (46-116); ASPARTATE AMNIOTRANSFERASE,AST 10 IU/L (15-37); BILIRUBIN TOTAL 1.4 mg/dL (0.2-1.0); BLOOD UREA NITROGEN,BUN 10 mg/dL (7.0-18.0); CALCIUM 8.5 mg/dL (8.5-10.1); CARBON DIOXIDE,CO2 31.8 mmol/L (21.0-32.0); CHLORIDE,CL 104 mmol/L (98-107); EST CRCL DRUG DOSING (CG) 68.23 mL/min; ETHANOL BLOOD MEDICAL <3 mg/dL; GLUCOSE RANDOM 89 mg/dL (74-106); POTASSIUM,K 3.4 mmol/L (3.5-5.1); PROTEIN TOTAL,TP 7.3 g/dL (6.4-8.2); SODIUM,NA 143 mmol/L (136-148)
[2024-09-10 12:21] LABS: ESTIMATED GFR 85 mL/min (>60)
== END 2024-09-10 14:19 | disposition home or self-care (01) ==
LOC: MW.ED 09:48
DX: E87.6 Hypokalemia (principal); M54.9 Dorsalgia, unspecified; I10 Essential (primary) hypertension; Z91.041 Radiographic dye allergy status; Z88.7 Allergy status to serum and vaccine; Z79.899 Other long term (current) drug therapy; Z90.49 Acquired absence of other specified parts of digestive tract; Z75.8 Other problems related to medical facilities and other health care
CPT/HCPCS: 36415; 70450; 80053; 80307; 81003; 83735; 84484; 85025; 93005; 96374; 99285; J2060

== ENCOUNTER 2024-09-16 05:41 | Emergency (ER) | payer MEDICARE ==
[2024-09-16 05:57] LABS: BASOPHILS ABSOLUTE AUTO 0.27 K/uL (0.00-0.20); BASOPHILS PERCENT AUTO 2.5 % (0.0-1.0); EOSINOPHILS ABSOLUTE AUTO 0.31 K/uL (0.00-0.45); EOSINOPHILS PERCENT AUTO 2.9 % (0.0-6.0); HEMOGLOBIN 17.3 g/dL (14.0-18.0); IMMATURE GRAN ABSOLUTE AUTO 0.05 K/uL (0.00-0.05); IMMATURE GRAN PERCENT AUTO 0.5 % (0.0-0.4); LYMPHOCYTES ABSOLUTE AUTO 1.56 K/uL (1.00-4.80); LYMPHOCYTES PERCENT AUTO 14.4 % (24.0-44.0); MEAN CORPUSCULAR HEMOGLOBIN 29.6 pg (28.0-32.0); MEAN CORPUSCULAR VOLUME 92.3 fL (83.0-99.0); MEAN PLATELET VOLUME 10.4 fL (9.4-12.4); MONOCYTES ABSOLUTE AUTO 0.57 K/uL (0.00-0.80); MONOCYTES PERCENT AUTO 5.3 % (0.0-8.0); NEUTROPHILS ABSOLUTE AUTO 8.07 K/uL (1.80-7.70); NEUTROPHILS PERCENT AUTO 74.4 % (41.0-71.0); PLATELET COUNT,PLT 335 K/uL (150-400); RED BLOOD CELL COUNT 5.85 M/uL (4.52-5.90); WHITE BLOOD CELL COUNT,WBC 10.83 K/uL (3.9-11.3)
[2024-09-16] MEDS: Sodium Chloride 0.9% 2.5 ML Syringe FLUSH PRN (05:58)
[2024-09-16] MEDS: Sodium Chloride 0.9% 10 ML Syringe FLUSH PRN (05:58)
[2024-09-16] MEDS: Sodium Chloride 0.9% 1,000 ML IV ONE (05:59)
[2024-09-16] MEDS: Ondansetron 4 MG/2 ML SDV IVPUSH ONE (06:04)
[2024-09-16 06:28] LABS: A/G RATIO 0.9 (0.9-1.6); ALBUMIN 3.4 g/dL (3.4-5.0); BILIRUBIN TOTAL 0.9 mg/dL (0.2-1.0); CALCIUM 8.9 mg/dL (8.5-10.1); CARBON DIOXIDE,CO2 30.2 mmol/L (21.0-32.0); EST CRCL DRUG DOSING (CG) 68.23 mL/min; POTASSIUM,K 4.1 mmol/L (3.5-5.1); TSH ULTRASENSITIVE 2.57 uIU/mL (0.36-3.74)
== END 2024-09-16 07:38 | disposition home or self-care (01) ==
LOC: MW.ED 05:41
DX: R42 Dizziness and giddiness (principal); R11.2 Nausea with vomiting, unspecified; I11.0 Hypertensive heart disease with heart failure; I50.9 Heart failure, unspecified; Z75.8 Other problems related to medical facilities and other health care; Z88.7 Allergy status to serum and vaccine; Z91.041 Radiographic dye allergy status; Z79.899 Other long term (current) drug therapy; Z90.49 Acquired absence of other specified parts of digestive tract
CPT/HCPCS: 36415; 71045; 80053; 80162; 83735; 84443; 84484; 85025; 87428; 93005; 96361; 96374; 99284; J2405; J7030; J3490

== ENCOUNTER 2024-09-19 18:49 | Emergency (ER) | payer SELFPAY ==
[2024-09-19] MEDS: Ondansetron 4 MG/2 ML SDV IVPUSH ONE (19:34)
[2024-09-19] MEDS: Meclizine 25 MG Tab PO ONE (19:34)
[2024-09-19 20:22] LABS: BASOPHILS ABSOLUTE AUTO 0.26 K/uL (0.00-0.20); BASOPHILS PERCENT AUTO 2.6 % (0.0-1.0); EOSINOPHILS ABSOLUTE AUTO 0.34 K/uL (0.00-0.45); EOSINOPHILS PERCENT AUTO 3.4 % (0.0-6.0); HEMATOCRIT 55.6 % (42.0-52.0); HEMOGLOBIN 17.7 g/dL (14.0-18.0); IMMATURE GRAN ABSOLUTE AUTO 0.07 K/uL (0.00-0.05); IMMATURE GRAN PERCENT AUTO 0.7 % (0.0-0.4); LYMPHOCYTES ABSOLUTE AUTO 2.16 K/uL (1.00-4.80); LYMPHOCYTES PERCENT AUTO 21.8 % (24.0-44.0); MEAN CORPUSCULAR HGB CONC 31.8 g/dL (32.0-36.0); MEAN CORPUSCULAR VOLUME 94.2 fL (83.0-99.0); MEAN PLATELET VOLUME 9.9 fL (9.4-12.4); MONOCYTES ABSOLUTE AUTO 0.45 K/uL (0.00-0.80); MONOCYTES PERCENT AUTO 4.5 % (0.0-8.0); NEUTROPHILS ABSOLUTE AUTO 6.64 K/uL (1.80-7.70); PLATELET COUNT,PLT 300 K/uL (150-400); WHITE BLOOD CELL COUNT,WBC 9.92 K/uL (3.9-11.3)
[2024-09-19 20:47] LABS: A/G RATIO 0.9 (0.9-1.6); ALBUMIN 3.3 g/dL (3.4-5.0); BILIRUBIN TOTAL 1.3 mg/dL (0.2-1.0); CALCIUM 8.8 mg/dL (8.5-10.1); CARBON DIOXIDE,CO2 33.2 mmol/L (21.0-32.0); EST CRCL DRUG DOSING (CG) 68.23 mL/min; POTASSIUM,K 3.2 mmol/L (3.5-5.1); PROTEIN TOTAL,TP 6.9 g/dL (6.4-8.2)
[2024-09-19] MEDS: Potassium Chloride 20 MEQ Tab.ER PO ONE (21:16)
== END 2024-09-19 21:27 | disposition home or self-care (01) ==
LOC: MW.ED 18:49
DX: I48.20 Chronic atrial fibrillation, unspecified (principal); E87.6 Hypokalemia; R42 Dizziness and giddiness; I10 Essential (primary) hypertension; J44.9 Chronic obstructive pulmonary disease, unspecified; Z90.49 Acquired absence of other specified parts of digestive tract; Z88.7 Allergy status to serum and vaccine; Z91.041 Radiographic dye allergy status; Z79.01 Long term (current) use of anticoagulants; Z79.899 Other long term (current) drug therapy
CPT/HCPCS: 36415; 71045; 80053; 84484; 85025; 85730; 93005; 96374; 99285; A9270; J2405

== ENCOUNTER 2024-10-09 16:32 | Emergency (ER) | payer MEDICARE ==
[2024-10-09 16:54] LABS: BASOPHILS ABSOLUTE AUTO 0.23 K/uL (0.00-0.20); BASOPHILS PERCENT AUTO 2.4 % (0.0-1.0); EOSINOPHILS ABSOLUTE AUTO 0.21 K/uL (0.00-0.45); EOSINOPHILS PERCENT AUTO 2.2 % (0.0-6.0); HEMATOCRIT 50.5 % (42.0-52.0); HEMOGLOBIN 16.4 g/dL (14.0-18.0); IMMATURE GRAN ABSOLUTE AUTO 0.09 K/uL (0.00-0.05); IMMATURE GRAN PERCENT AUTO 0.9 % (0.0-0.4); LYMPHOCYTES ABSOLUTE AUTO 1.92 K/uL (1.00-4.80); MEAN CORPUSCULAR HGB CONC 32.5 g/dL (32.0-36.0); MEAN CORPUSCULAR VOLUME 98.4 fL (83.0-99.0); MEAN PLATELET VOLUME 9.4 fL (9.4-12.4); MONOCYTES ABSOLUTE AUTO 0.57 K/uL (0.00-0.80); MONOCYTES PERCENT AUTO 5.9 % (0.0-8.0); NEUTROPHILS PERCENT AUTO 68.6 % (41.0-71.0); PLATELET COUNT,PLT 220 K/uL (150-400); RED BLOOD CELL COUNT 5.13 M/uL (4.52-5.90); WHITE BLOOD CELL COUNT,WBC 9.62 K/uL (3.9-11.3)
[2024-10-09 17:13] LABS: ALBUMIN 3.5 g/dL (3.4-5.0); BILIRUBIN TOTAL 1.7 mg/dL (0.2-1.0); CALCIUM 8.4 mg/dL (8.5-10.1); CARBON DIOXIDE,CO2 29.9 mmol/L (21.0-32.0); CREATININE 1.1 mg/dL (0.8-1.3); EST CRCL DRUG DOSING (CG) 62.03 mL/min; POTASSIUM,K 3.2 mmol/L (3.5-5.1)
[2024-10-09] MEDS: Acetaminophen 500 MG Tab PO ONE (18:33)
[2024-10-09] MEDS: Furosemide 20 MG Tab PO ONE (19:57)
== END 2024-10-09 20:01 | disposition home or self-care (01) ==
LOC: MW.ED 16:32
DX: M54.50 Low back pain, unspecified (principal); I11.0 Hypertensive heart disease with heart failure; I50.9 Heart failure, unspecified; J44.9 Chronic obstructive pulmonary disease, unspecified; I48.91 Unspecified atrial fibrillation; F17.210 Nicotine dependence, cigarettes, uncomplicated; Z79.01 Long term (current) use of anticoagulants; Z79.84 Long term (current) use of oral hypoglycemic drugs; Z79.1 Long term (current) use of non-steroidal anti-inflammatories (NSAID); Z79.899 Other long term (current) drug therapy; Z75.8 Other problems related to medical facilities and other health care; Z88.7 Allergy status to serum and vaccine; Z91.041 Radiographic dye allergy status; Z90.49 Acquired absence of other specified parts of digestive tract; W00.0XXA Fall on same level due to ice and snow, initial encounter
CPT/HCPCS: 36415; 70450; 71045; 72131; 80053; 83735; 83880; 84484; 85025; 93005; 99284; A9270; 93010

== ENCOUNTER 2024-10-27 08:57 | Emergency (ER) | payer MEDICARE ==
[2024-10-27] MEDS: Ondansetron 4 MG Tab.DIS PO ONE (09:06)
[2024-10-27] MEDS ORDERED: Sodium Chloride 0.9% 2.5 ML Syringe FLUSH PRN (09:10)
[2024-10-27] MEDS ORDERED: Sodium Chloride 0.9% 20 ML SDV IV PRN (09:10)
[2024-10-27] MEDS ORDERED: Sodium Chloride 0.9% 10 ML Syringe FLUSH PRN (09:10)
[2024-10-27 09:43] LABS: APPEARANCE,URINE CLEAR; BILIRUBIN,URINE NEGATIVE (NEGATIVE); COLOR,URINE YELLOW; GLUCOSE,URINE 500 mg/dL (NEGATIVE); KETONES,URINE NEGATIVE (NEGATIVE); LEUKOCYTE ESTERASE,URINE NEGATIVE (NEGATIVE); NITRITE,URINE NEGATIVE (NEGATIVE); OCCULT BLOOD,URINE NEGATIVE (NEGATIVE); PH,URINE 5.5 (5.0-8.0); PROTEIN,URINE NEGATIVE (NEGATIVE); UROBILINOGEN,URINE 0.2 EU/dL (<2.0)
[2024-10-27 10:00] LABS: BASOPHILS ABSOLUTE AUTO 0.09 K/uL (0.00-0.20); BASOPHILS PERCENT AUTO 1.5 % (0.0-1.0); EOSINOPHILS ABSOLUTE AUTO 0.12 K/uL (0.00-0.45); EOSINOPHILS PERCENT AUTO 1.9 % (0.0-6.0); HEMATOCRIT 47.5 % (42.0-52.0); HEMOGLOBIN 15.5 g/dL (14.0-18.0); IMMATURE GRAN ABSOLUTE AUTO 0.04 K/uL (0.00-0.05); IMMATURE GRAN PERCENT AUTO 0.6 % (0.0-0.4); LYMPHOCYTES ABSOLUTE AUTO 1.33 K/uL (1.00-4.80); LYMPHOCYTES PERCENT AUTO 21.5 % (24.0-44.0); MEAN CORPUSCULAR HEMOGLOBIN 34.2 pg (28.0-32.0); MEAN CORPUSCULAR HGB CONC 32.6 g/dL (32.0-36.0); MEAN CORPUSCULAR VOLUME 104.9 fL (83.0-99.0); MEAN PLATELET VOLUME 10.3 fL (9.4-12.4); MONOCYTES ABSOLUTE AUTO 0.42 K/uL (0.00-0.80); MONOCYTES PERCENT AUTO 6.8 % (0.0-8.0); NEUTROPHILS PERCENT AUTO 67.7 % (41.0-71.0); PLATELET COUNT,PLT 231 K/uL (150-400); RED BLOOD CELL COUNT 4.53 M/uL (4.52-5.90)
[2024-10-27 10:14] LABS: INR 1.04 (0.86-1.11); PTT,PARTIAL THROMBOPLSTIN TIME 31.9 SEC (23.9-30.7)
[2024-10-27 10:27] LABS: A/G RATIO 0.9 (0.9-1.6); ALANINE AMINOTRANSFERASE,ALT 14 IU/L (14-63); ALBUMIN 3.4 g/dL (3.4-5.0); ALKALINE PHOSPHATASE 118 U/L (46-116); ASPARTATE AMNIOTRANSFERASE,AST 10 IU/L (15-37); BILIRUBIN TOTAL 1.2 mg/dL (0.2-1.0); BLOOD UREA NITROGEN,BUN 12 mg/dL (7.0-18.0); CALCIUM 8.8 mg/dL (8.5-10.1); CARBON DIOXIDE,CO2 33.9 mmol/L (21.0-32.0); CHLORIDE,CL 103 mmol/L (98-107); CREATINE KINASE,CK 31 U/L (26-308); CREATININE 0.9 mg/dL (0.8-1.3); GLUCOSE RANDOM 96 mg/dL (74-106); POTASSIUM,K 3.7 mmol/L (3.5-5.1); PROTEIN TOTAL,TP 7.1 g/dL (6.4-8.2); SODIUM,NA 143 mmol/L (136-148)
[2024-10-27 10:28] LABS: ESTIMATED GFR 96 mL/min (>60)
== END 2024-10-27 12:56 | disposition home or self-care (01) ==
LOC: MW.ED 08:57
DX: Z04.3 Encounter for examination and observation following other accident (principal); I10 Essential (primary) hypertension; J44.9 Chronic obstructive pulmonary disease, unspecified; Z88.7 Allergy status to serum and vaccine; Z91.041 Radiographic dye allergy status; Z79.899 Other long term (current) drug therapy; Z90.49 Acquired absence of other specified parts of digestive tract; W01.0XXA Fall on same level from slipping, tripping and stumbling without subsequent striking against object, initial encounter
CPT/HCPCS: 36415; 70450; 71045; 72125; 80053; 81003; 82550; 85025; 85610; 85730; 99284; A9270

== ENCOUNTER 2024-11-10 21:21 | Emergency (ER) | payer MEDICARE ==
[2024-11-10] MEDS: Sodium Chloride 0.9% 1,000 ML IV SCH (22:26)
[2024-11-10] MEDS: Metoclopramide 10 MG/2 ML SDV IVPUSH ONE (22:27)
[2024-11-10] MEDS: Meclizine 25 MG Tab PO ONE (22:28)
[2024-11-10] MEDS: diphenhydrAMINE 50 MG Cap PO ONE (22:31)
[2024-11-10] MEDS: diphenhydrAMINE 50 MG/ML SDV IVPUSH ONE (22:32)
[2024-11-10 22:35] LABS: BASOPHILS ABSOLUTE AUTO 0.09 K/uL (0.00-0.20); BASOPHILS PERCENT AUTO 1.1 % (0.0-1.0); EOSINOPHILS ABSOLUTE AUTO 0.14 K/uL (0.00-0.45); EOSINOPHILS PERCENT AUTO 1.8 % (0.0-6.0); HEMATOCRIT 42.1 % (42.0-52.0); HEMOGLOBIN 14.4 g/dL (14.0-18.0); IMMATURE GRAN ABSOLUTE AUTO 0.04 K/uL (0.00-0.05); IMMATURE GRAN PERCENT AUTO 0.5 % (0.0-0.4); LYMPHOCYTES ABSOLUTE AUTO 1.27 K/uL (1.00-4.80); MEAN CORPUSCULAR HEMOGLOBIN 36.2 pg (28.0-32.0); MEAN CORPUSCULAR HGB CONC 34.2 g/dL (32.0-36.0); MEAN CORPUSCULAR VOLUME 105.8 fL (83.0-99.0); MEAN PLATELET VOLUME 9.3 fL (9.4-12.4); MONOCYTES ABSOLUTE AUTO 0.42 K/uL (0.00-0.80); MONOCYTES PERCENT AUTO 5.3 % (0.0-8.0); NEUTROPHILS ABSOLUTE AUTO 5.97 K/uL (1.80-7.70); NEUTROPHILS PERCENT AUTO 75.3 % (41.0-71.0); PLATELET COUNT,PLT 138 K/uL (150-400); RED BLOOD CELL COUNT 3.98 M/uL (4.52-5.90); WHITE BLOOD CELL COUNT,WBC 7.93 K/uL (3.9-11.3)
[2024-11-10] MEDS: diphenhydrAMINE 50 MG/ML SDV ONE (22:38)
[2024-11-10 22:50] LABS: CALCIUM 8.8 mg/dL (8.5-10.1); CARBON DIOXIDE,CO2 31.3 mmol/L (21.0-32.0); CREATININE 1.1 mg/dL (0.8-1.3); EST CRCL DRUG DOSING (CG) 62.03 mL/min; POTASSIUM,K 3.5 mmol/L (3.5-5.1)
== END 2024-11-10 23:28 | disposition home or self-care (01) ==
LOC: MW.ED 21:21
DX: R42 Dizziness and giddiness (principal); I10 Essential (primary) hypertension; I48.91 Unspecified atrial fibrillation; J44.9 Chronic obstructive pulmonary disease, unspecified; Z90.49 Acquired absence of other specified parts of digestive tract; Z79.01 Long term (current) use of anticoagulants; Z79.899 Other long term (current) drug therapy; Z79.51 Long term (current) use of inhaled steroids; Z91.048 Other nonmedicinal substance allergy status; Z88.7 Allergy status to serum and vaccine
CPT/HCPCS: 36415; 80048; 83735; 85025; 93005; 96361; 96374; 96375; 99284; A9270; J1200; J2765; J7030; 93010; 99283

== ENCOUNTER 2024-12-07 09:44 | Emergency (ER) | payer MEDICARE ==
[2024-12-07 15:59] LABS: APPEARANCE,URINE CLEAR; BILIRUBIN,URINE NEGATIVE (NEGATIVE); COLOR,URINE YELLOW; GLUCOSE,URINE 500 mg/dL (NEGATIVE); KETONES,URINE NEGATIVE (NEGATIVE); LEUKOCYTE ESTERASE,URINE NEGATIVE (NEGATIVE); NITRITE,URINE NEGATIVE (NEGATIVE); OCCULT BLOOD,URINE NEGATIVE (NEGATIVE); PH,URINE 5.5 (5.0-8.0); PROTEIN,URINE NEGATIVE (NEGATIVE); UROBILINOGEN,URINE 0.2 EU/dL (<2.0)
[2024-12-07 16:09] LABS: BACTERIA,URINE FEW (NEGATIVE); EPITHELIAL CELLS,URINE RARE (NONE-FEW); RBC,URINE 0-1 (0-2/HPF); WBC,URINE 0-1 (0-5/HPF)
== END 2024-12-07 15:57 | disposition home or self-care (01) ==
LOC: MW.ED 09:44
DX: K59.00 Constipation, unspecified (principal); R33.9 Retention of urine, unspecified; I10 Essential (primary) hypertension; J44.9 Chronic obstructive pulmonary disease, unspecified; E11.9 Type 2 diabetes mellitus without complications; I48.91 Unspecified atrial fibrillation; Z91.041 Radiographic dye allergy status; Z88.7 Allergy status to serum and vaccine; Z79.899 Other long term (current) drug therapy
CPT/HCPCS: 51702; 51798; 81001; 87086; 99283

== ENCOUNTER 2024-12-09 19:26 | Emergency (ER) | payer MEDICARE | END 2024-12-09 21:47 | disposition home or self-care (01) | LOC: MW.ED 19:26 | DX: T83.031A Leakage of indwelling urethral catheter, initial encounter (principal); I10 Essential (primary) hypertension; I48.91 Unspecified atrial fibrillation; E11.9 Type 2 diabetes mellitus without complications; J44.9 Chronic obstructive pulmonary disease, unspecified; Z91.041 Radiographic dye allergy status; Z88.7 Allergy status to serum and vaccine; Z91.048 Other nonmedicinal substance allergy status; Z79.01 Long term (current) use of anticoagulants; Z79.899 Other long term (current) drug therapy; Y84.6 Urinary catheterization as the cause of abnormal reaction of the patient, or of later complication, without mention of misadventure at the time of the procedure | CPT/HCPCS: 51702; 99282; 99283 ==

== ENCOUNTER 2024-12-10 15:02 | Emergency (ER) | payer MEDICARE | END 2024-12-10 19:41 | disposition home or self-care (01) | LOC: MW.ED 15:02 | DX: M53.3 Sacrococcygeal disorders, not elsewhere classified (principal); I10 Essential (primary) hypertension; E11.9 Type 2 diabetes mellitus without complications; F17.210 Nicotine dependence, cigarettes, uncomplicated; Z75.3 Unavailability and inaccessibility of health-care facilities; Z88.7 Allergy status to serum and vaccine; Z91.041 Radiographic dye allergy status; Z79.2 Long term (current) use of antibiotics; Z79.899 Other long term (current) drug therapy; Z90.49 Acquired absence of other specified parts of digestive tract | CPT/HCPCS: 72170; 72170-26; 72220; 72220-26; 99283 ==

== ENCOUNTER 2025-06-02 12:08 | Emergency (ER) | payer MEDICARE, OTHER ==
[2025-06-02] MEDS ORDERED: Sodium Chloride 0.9% 2.5 ML Syringe FLUSH PRN (12:22)
[2025-06-02] MEDS: Sodium Chloride 0.9% 10 ML Syringe FLUSH PRN (12:41)
[2025-06-02 13:23] LABS: MEAN PLATELET VOLUME 10.8 fL (9.4-12.4); NRBC ABSOLUTE 0.00 K/uL (0.00-0.02); NRBC PERCENT 0.0 /100WBC (0.0-0.2); PLATELET COUNT,PLT 113 K/uL (150-400); RED BLOOD CELL COUNT 1.85 M/uL (4.52-5.90); WHITE BLOOD CELL COUNT,WBC 4.26 K/uL (3.9-11.3)
[2025-06-02 13:37] LABS: INR 1.09 (0.86-1.11)
[2025-06-02 13:51] LABS: A/G RATIO 1.1 (0.9-1.6); ALANINE AMINOTRANSFERASE,ALT 11 IU/L (14-63); ASPARTATE AMNIOTRANSFERASE,AST 12 IU/L (15-37); BILIRUBIN TOTAL 1.4 mg/dL (0.2-1.0); BLOOD UREA NITROGEN,BUN 15 mg/dL (7.0-18.0); CARBON DIOXIDE,CO2 27.1 mmol/L (21.0-32.0); CHLORIDE,CL 103 mmol/L (98-107); CREATININE 1.2 mg/dL (0.8-1.3); EST CRCL DRUG DOSING (CG) 56.12 mL/min; ETHANOL BLOOD MEDICAL <3 mg/dL; GLUCOSE RANDOM 136 mg/dL (74-106); POTASSIUM,K 4.4 mmol/L (3.5-5.1); PROTEIN TOTAL,TP 6.9 g/dL (6.4-8.2); SODIUM,NA 140 mmol/L (136-148)
[2025-06-02 13:52] LABS: ESTIMATED GFR 68 mL/min (>60)
[2025-06-02 13:56] LABS: ELLIPTOCYTES 2+ MODERATE; EOSINOPHILS ABSOLUTE MAN 0.04 K/uL (0.00-0.45); EOSINOPHILS PERCENT MAN 1 % (0-6); LYMPHOCYTES ABSOLUTE MAN 0.81 K/uL (1.00-4.80); LYMPHOCYTES PERCENT MAN 19 % (24-44); MONOCYTES ABSOLUTE MAN 0.43 K/uL (0.00-0.80); MONOCYTES PERCENT MAN 10 % (0-8); SEG NEUTROPHILS ABSOLUTE MAN 2.98 K/uL (1.80-7.70); SEG NEUTROPHILS PERCENT MAN 70 % (41-71); TEARDROP CELLS 1+ SLIGHT
[2025-06-02 14:44] LABS: APPEARANCE,URINE CLEAR; GLUCOSE,URINE NEGATIVE (NEGATIVE); OCCULT BLOOD,URINE NEGATIVE (NEGATIVE)
== END 2025-06-02 15:30 | disposition home or self-care (01) ==
LOC: MW.ED 12:08
DX: M54.50 Low back pain, unspecified (principal); M54.2 Cervicalgia; M79.604 Pain in right leg; M79.605 Pain in left leg; I11.0 Hypertensive heart disease with heart failure; I50.9 Heart failure, unspecified; F17.200 Nicotine dependence, unspecified, uncomplicated; Z88.7 Allergy status to serum and vaccine; Z91.041 Radiographic dye allergy status; Z79.01 Long term (current) use of anticoagulants; Z79.899 Other long term (current) drug therapy; Z90.49 Acquired absence of other specified parts of digestive tract; W01.198A Fall on same level from slipping, tripping and stumbling with subsequent striking against other object, initial encounter
CPT/HCPCS: 36415; 70450; 71250; 72125; 73590; 74176; 80053; 80307; 81003; 84484; 85025; 85610; 93005; 99284; A9270; 93010

== ENCOUNTER 2025-06-06 11:19 | Inpatient (IN) | payer SELFPAY ==
[2025-06-06] MEDS ORDERED: Sodium Chloride 0.9% 10 ML Syringe FLUSH PRN ×2 (12:18→21:20)
[2025-06-06] MEDS ORDERED: Sodium Chloride 0.9% 2.5 ML Syringe FLUSH PRN ×2 (12:18→21:20)
[2025-06-06] MEDS: Gadoteridol 279.3 MG/ML 20 ML SDV IVPUSH ONE (14:09)
[2025-06-06 14:32] LABS: APPEARANCE,URINE CLEAR; GLUCOSE,URINE >=1000 mg/dL (NEGATIVE); OCCULT BLOOD,URINE NEGATIVE (NEGATIVE)
[2025-06-06 14:36] LABS: MEAN PLATELET VOLUME 11.8 fL (9.4-12.4); NRBC ABSOLUTE 0.00 K/uL (0.00-0.02); NRBC PERCENT 0.0 /100WBC (0.0-0.2); PLATELET COUNT,PLT 106 K/uL (150-400); RED BLOOD CELL COUNT 1.65 M/uL (4.52-5.90); WHITE BLOOD CELL COUNT,WBC 4.07 K/uL (3.9-11.3)
[2025-06-06 14:48] LABS: INR 1.11 (0.86-1.11); PTT,PARTIAL THROMBOPLSTIN TIME 28.0 SEC (23.9-30.7)
[2025-06-06 15:05] LABS: ELLIPTOCYTES 1+ SLIGHT; EOSINOPHILS ABSOLUTE MAN 0.04 K/uL (0.00-0.45); EOSINOPHILS PERCENT MAN 1 % (0-6); LYMPHOCYTES ABSOLUTE MAN 0.94 K/uL (1.00-4.80); LYMPHOCYTES PERCENT MAN 23 % (24-44); MONOCYTES ABSOLUTE MAN 0.12 K/uL (0.00-0.80); MONOCYTES PERCENT MAN 3 % (0-8); SEG NEUTROPHILS ABSOLUTE MAN 2.97 K/uL (1.80-7.70); SEG NEUTROPHILS PERCENT MAN 73 % (41-71); TEARDROP CELLS 1+ SLIGHT
[2025-06-06 15:06] LABS: A/G RATIO 1.1 (0.9-1.6); ASPARTATE AMNIOTRANSFERASE,AST 11.0 IU/L (15-37); BILIRUBIN TOTAL 1.5 mg/dL (0.2-1.0); BLOOD UREA NITROGEN,BUN 22.0 mg/dL (7.0-18.0); CARBON DIOXIDE,CO2 30.1 mmol/L (21.0-32.0); CHLORIDE,CL 102.0 mmol/L (98-107); CREATINE KINASE,CK 26.0 U/L (26-308); CREATININE 1.2 mg/dL (0.8-1.3); EST CRCL DRUG DOSING (CG) 56.12 mL/min; GLUCOSE RANDOM 101.0 mg/dL (74-106); POTASSIUM,K 4.2 mmol/L (3.5-5.1); PROTEIN TOTAL,TP 6.7 g/dL (6.4-8.2); SODIUM,NA 140.0 mmol/L (136-148)
[2025-06-06 15:11] LABS: ESTIMATED GFR 68.0 mL/min (>60)
[2025-06-06 15:15] LABS: LACTIC ACID 1.5 mmol/L (0.4-2.0)
[2025-06-06 15:20] LABS: ALANINE AMINOTRANSFERASE,ALT 10.0 IU/L (14-63)
[2025-06-06 21:49] LABS: IMMATURE RETIC FRACTION 12.1 %; RED BLOOD CELL COUNT 1.6 M/uL (4.52-5.90); RETICULOCYTE ABSOLUTE 0.0304 K/uL (0.02-0.12); RETICULOCYTE COUNT PERCENT 1.9 % (0.5-2.0)
[2025-06-06 22:39] LABS: FOLIC ACID 3.2 ng/mL (8.60-58.90); PHOSPHORUS 3.6 mg/dL (2.6-4.7)
[2025-06-06 22:45] LABS: IRON,FE 238.0 ug/dL (50-175); PERCENT FE SATURATION 90.84 % (20-55)
[2025-06-07 05:53] LABS: MEAN PLATELET VOLUME 10.3 fL (9.4-12.4); NRBC ABSOLUTE 0.00 K/uL (0.00-0.02); NRBC PERCENT 0.0 /100WBC (0.0-0.2); PLATELET COUNT,PLT 95 K/uL (150-400); RED BLOOD CELL COUNT 1.55 M/uL (4.52-5.90); WHITE BLOOD CELL COUNT,WBC 3.52 K/uL (3.9-11.3)
[2025-06-07 06:15] LABS: A/G RATIO 1.1 (0.9-1.6); ALANINE AMINOTRANSFERASE,ALT 9.0 IU/L (14-63); ASPARTATE AMNIOTRANSFERASE,AST 9.0 IU/L (15-37); BILIRUBIN TOTAL 1.3 mg/dL (0.2-1.0); BLOOD UREA NITROGEN,BUN 23.0 mg/dL (7.0-18.0); CARBON DIOXIDE,CO2 30.0 mmol/L (21.0-32.0); CHLORIDE,CL 102.0 mmol/L (98-107); CREATININE 1.1 mg/dL (0.8-1.3); EST CRCL DRUG DOSING (CG) 61.22 mL/min; GLUCOSE RANDOM 89.0 mg/dL (74-106); POTASSIUM,K 3.9 mmol/L (3.5-5.1); PROTEIN TOTAL,TP 6.2 g/dL (6.4-8.2); SODIUM,NA 134.0 mmol/L (136-148)
[2025-06-07 06:23] LABS: ESTIMATED GFR 75.0 mL/min (>60)
[2025-06-07 06:56] LABS: ELLIPTOCYTES 1+ SLIGHT; EOSINOPHILS ABSOLUTE MAN 0.04 K/uL (0.00-0.45); EOSINOPHILS PERCENT MAN 1 % (0-6); LYMPHOCYTES ABSOLUTE MAN 1.41 K/uL (1.00-4.80); LYMPHOCYTES PERCENT MAN 40 % (24-44); MONOCYTES ABSOLUTE MAN 0.25 K/uL (0.00-0.80); MONOCYTES PERCENT MAN 7 % (0-8); SEG NEUTROPHILS ABSOLUTE MAN 1.83 K/uL (1.80-7.70); SEG NEUTROPHILS PERCENT MAN 52 % (41-71)
[2025-06-07] MEDS: Diltiazem 120 MG Cap.CD PO SCH (10:40)
[2025-06-07] MEDS: buPROPion 150 MG Tab.ER PO SCH (10:44)
[2025-06-07 16:42] LABS: MEAN PLATELET VOLUME 11.0 fL (9.4-12.4); NRBC ABSOLUTE 0.00 K/uL (0.00-0.02); NRBC PERCENT 0.0 /100WBC (0.0-0.2); PLATELET COUNT,PLT 98 K/uL (150-400); RED BLOOD CELL COUNT 1.84 M/uL (4.52-5.90); WHITE BLOOD CELL COUNT,WBC 3.78 K/uL (3.9-11.3)
[2025-06-07 17:14] LABS: ELLIPTOCYTES 2+ MODERATE; EOSINOPHILS ABSOLUTE MAN 0.04 K/uL (0.00-0.45); EOSINOPHILS PERCENT MAN 1 % (0-6); LYMPHOCYTES ABSOLUTE MAN 1.66 K/uL (1.00-4.80); LYMPHOCYTES PERCENT MAN 44 % (24-44); MONOCYTES ABSOLUTE MAN 0.15 K/uL (0.00-0.80); MONOCYTES PERCENT MAN 4 % (0-8); MYELOCYTE ABSOLUTE MAN 0.04; MYELOCYTE PERCENT MAN 1 %; SEG NEUTROPHILS ABSOLUTE MAN 1.89 K/uL (1.80-7.70); SEG NEUTROPHILS PERCENT MAN 50 % (41-71)
[2025-06-08 06:02] LABS: MEAN PLATELET VOLUME 11.0 fL (9.4-12.4); NRBC ABSOLUTE 0.00 K/uL (0.00-0.02); NRBC PERCENT 0.0 /100WBC (0.0-0.2); RED BLOOD CELL COUNT 1.72 M/uL (4.52-5.90); WHITE BLOOD CELL COUNT,WBC 3.03 K/uL (3.9-11.3)
[2025-06-08 06:28] LABS: BLOOD UREA NITROGEN,BUN 19.0 mg/dL (7.0-18.0); CARBON DIOXIDE,CO2 26.9 mmol/L (21.0-32.0); CHLORIDE,CL 106.0 mmol/L (98-107); CREATININE 1.0 mg/dL (0.8-1.3); EST CRCL DRUG DOSING (CG) 67.34 mL/min; GLUCOSE RANDOM 88.0 mg/dL (74-106); POTASSIUM,K 3.9 mmol/L (3.5-5.1); SODIUM,NA 141.0 mmol/L (136-148)
[2025-06-08 06:29] LABS: ESTIMATED GFR 84.0 mL/min (>60)
[2025-06-08 07:21] LABS: PLATELET COUNT,PLT 141 K/uL (150-400); SEG NEUTROPHILS ABSOLUTE MAN 1.39 K/uL (1.80-7.70); SEG NEUTROPHILS PERCENT MAN 46 % (41-71)
[2025-06-08 07:22] LABS: BAND ABSOLUTE MAN 0.03; BAND PERCENT MAN 1 %; EOSINOPHILS ABSOLUTE MAN 0.12 K/uL (0.00-0.45); EOSINOPHILS PERCENT MAN 4 % (0-6); LYMPHOCYTES ABSOLUTE MAN 1.36 K/uL (1.00-4.80); LYMPHOCYTES PERCENT MAN 45 % (24-44); MONOCYTES ABSOLUTE MAN 0.12 K/uL (0.00-0.80); MONOCYTES PERCENT MAN 4 % (0-8)
[2025-06-08] MEDS ORDERED: Diltiazem 120 MG Cap.CD PO SCH (09:00)
[2025-06-09 06:12] LABS: MEAN PLATELET VOLUME 11.2 fL (9.4-12.4); NRBC ABSOLUTE 0.00 K/uL (0.00-0.02); NRBC PERCENT 0.0 /100WBC (0.0-0.2); PLATELET COUNT,PLT 89 K/uL (150-400); RED BLOOD CELL COUNT 2.06 M/uL (4.52-5.90); WHITE BLOOD CELL COUNT,WBC 2.89 K/uL (3.9-11.3)
[2025-06-09 06:28] LABS: BLOOD UREA NITROGEN,BUN 17.0 mg/dL (7.0-18.0); CARBON DIOXIDE,CO2 26.9 mmol/L (21.0-32.0); CHLORIDE,CL 103.0 mmol/L (98-107); CREATININE 0.9 mg/dL (0.8-1.3); EST CRCL DRUG DOSING (CG) 74.83 mL/min; GLUCOSE RANDOM 85.0 mg/dL (74-106); POTASSIUM,K 3.9 mmol/L (3.5-5.1); SODIUM,NA 141.0 mmol/L (136-148)
[2025-06-09 06:29] LABS: ESTIMATED GFR 95.0 mL/min (>60)
[2025-06-09 07:05] LABS: BAND ABSOLUTE MAN 0.03; BAND PERCENT MAN 1 %; LYMPHOCYTES ABSOLUTE MAN 1.18 K/uL (1.00-4.80); LYMPHOCYTES PERCENT MAN 41 % (24-44); MONOCYTES ABSOLUTE MAN 0.26 K/uL (0.00-0.80); MONOCYTES PERCENT MAN 9 % (0-8); SEG NEUTROPHILS ABSOLUTE MAN 1.42 K/uL (1.80-7.70); SEG NEUTROPHILS PERCENT MAN 49 % (41-71)
== END 2025-06-09 16:25 | disposition home health service (06) | DRG 812 ==
LOC: MW.ED 11:19 → MW.MS 16:48 → OBSVTOIN 16:48 → MW.MS 06-07 12:37
PROVIDERS: ADMIT Internal Medicine; ATTEND Internal Medicine
PROC: 30233N1 Transfusion of Nonautologous Red Blood Cells into Peripheral Vein, Percutaneous Approach (ICD-10-PCS; principal; 2025-06-06)
DX: D64.9 Anemia, unspecified (principal); D46.9 Myelodysplastic syndrome, unspecified; R26.2 Difficulty in walking, not elsewhere classified; I48.91 Unspecified atrial fibrillation; I11.0 Hypertensive heart disease with heart failure; I50.9 Heart failure, unspecified; J44.9 Chronic obstructive pulmonary disease, unspecified; R41.3 Other amnesia; G47.30 Sleep apnea, unspecified; F32.A Depression, unspecified; Z90.49 Acquired absence of other specified parts of digestive tract; Z79.01 Long term (current) use of anticoagulants; Z88.8 Allergy status to other drugs, medicaments and biological substances; Z79.899 Other long term (current) drug therapy; Z98.49 Cataract extraction status, unspecified eye
CPT/HCPCS: 36410; 36415; 36430; 70450; 70450-26; 70544; 70544-26; 70549; 70549-26; 70553; 70553-26; 71046; 71046-26; 80048; 80053; 80162; 80307; 81003; 82140; 82550; 82607; 82728; 82746; 83010; 83036; 83550; 83605; 83735; 84100; 84484; 85014; 85018; 85025; 85045; 85610; 85730; 86850; 86900; 86901; 86920; 87086; 93005; 97161-GP; 99285; A9270-GY; A9579; G0378; J2003; P9016

== ENCOUNTER 2025-06-11 09:24 | Emergency (ER) | payer SELFPAY ==
[2025-06-11] MEDS: Acetaminophen/HYDROcodone 325-5 MG Tab PO ONE (09:39)
== END 2025-06-11 12:03 | disposition home or self-care (01) ==
LOC: MW.ED 09:24
DX: S32.019A Unspecified fracture of first lumbar vertebra, initial encounter for closed fracture (principal); S32.029A Unspecified fracture of second lumbar vertebra, initial encounter for closed fracture; S32.039A Unspecified fracture of third lumbar vertebra, initial encounter for closed fracture; I11.0 Hypertensive heart disease with heart failure; I50.9 Heart failure, unspecified; Z88.7 Allergy status to serum and vaccine; Z91.041 Radiographic dye allergy status; Z79.899 Other long term (current) drug therapy; Z90.49 Acquired absence of other specified parts of digestive tract; F17.200 Nicotine dependence, unspecified, uncomplicated; W01.0XXA Fall on same level from slipping, tripping and stumbling without subsequent striking against object, initial encounter
CPT/HCPCS: 70450; 72131; 74176; 99284; A9270

== ENCOUNTER 2025-06-21 14:05 | Emergency (ER) | payer MEDICARE, OTHER ==
[2025-06-21] MEDS ORDERED: Sodium Chloride 0.9% 10 ML Syringe FLUSH PRN (14:55)
[2025-06-21] MEDS ORDERED: Sodium Chloride 0.9% 2.5 ML Syringe FLUSH PRN (14:55)
[2025-06-21 15:59] LABS: MEAN PLATELET VOLUME 11.1 fL (9.4-12.4); NRBC ABSOLUTE 0.00 K/uL (0.00-0.02); NRBC PERCENT 0.0 /100WBC (0.0-0.2); PLATELET COUNT,PLT 112 K/uL (150-400); RED BLOOD CELL COUNT 1.95 M/uL (4.52-5.90); WHITE BLOOD CELL COUNT,WBC 3.73 K/uL (3.9-11.3)
[2025-06-21 16:21] LABS: A/G RATIO 1.0 (0.9-1.6); ALANINE AMINOTRANSFERASE,ALT 19.0 IU/L (14-63); ASPARTATE AMNIOTRANSFERASE,AST 15.0 IU/L (15-37); BILIRUBIN TOTAL 1.4 mg/dL (0.2-1.0); BLOOD UREA NITROGEN,BUN 19.0 mg/dL (7.0-18.0); CARBON DIOXIDE,CO2 32.4 mmol/L (21.0-32.0); CHLORIDE,CL 103.0 mmol/L (98-107); CREATININE 1.1 mg/dL (0.8-1.3); EST CRCL DRUG DOSING (CG) 61.22 mL/min; GLUCOSE RANDOM 111.0 mg/dL (74-106); POTASSIUM,K 3.9 mmol/L (3.5-5.1); PROTEIN TOTAL,TP 7.1 g/dL (6.4-8.2); SODIUM,NA 140.0 mmol/L (136-148)
[2025-06-21 16:23] LABS: ESTIMATED GFR 75.0 mL/min (>60)
[2025-06-21 16:47] LABS: LYMPHOCYTES ABSOLUTE MAN 1.57 K/uL (1.00-4.80); LYMPHOCYTES PERCENT MAN 42 % (24-44); MONOCYTES ABSOLUTE MAN 0.15 K/uL (0.00-0.80); MONOCYTES PERCENT MAN 4 % (0-8); SEG NEUTROPHILS ABSOLUTE MAN 2.01 K/uL (1.80-7.70); SEG NEUTROPHILS PERCENT MAN 54 % (41-71)
== END 2025-06-21 20:45 | disposition home or self-care (01) ==
LOC: MW.ED 14:05
DX: D64.9 Anemia, unspecified (principal); I11.0 Hypertensive heart disease with heart failure; I50.9 Heart failure, unspecified; I48.91 Unspecified atrial fibrillation; J44.9 Chronic obstructive pulmonary disease, unspecified; Z75.3 Unavailability and inaccessibility of health-care facilities; Z91.041 Radiographic dye allergy status; Z88.7 Allergy status to serum and vaccine; Z79.01 Long term (current) use of anticoagulants; Z79.899 Other long term (current) drug therapy; F17.210 Nicotine dependence, cigarettes, uncomplicated
CPT/HCPCS: 36415; 36430; 80053; 85025; 86850; 86900; 86901; 86920; 99284; A9270; P9016

== ENCOUNTER 2025-06-23 11:08 | Emergency (ER) | payer MEDICARE, OTHER | END 2025-06-23 13:54 | disposition home or self-care (01) | LOC: MW.ED 11:08 | DX: Z76.0 Encounter for issue of repeat prescription (principal); I11.0 Hypertensive heart disease with heart failure; I50.9 Heart failure, unspecified; I48.91 Unspecified atrial fibrillation; J44.9 Chronic obstructive pulmonary disease, unspecified; F17.200 Nicotine dependence, unspecified, uncomplicated; Z91.041 Radiographic dye allergy status; Z88.7 Allergy status to serum and vaccine; Z79.899 Other long term (current) drug therapy; Z79.01 Long term (current) use of anticoagulants | CPT/HCPCS: 71045; 71045-26; 99283; 99284 ==